=== PATIENT | male | born 1935 | race Caucasian/White ===

== ENCOUNTER 2016-05-06 09:10 | Emergency (ER) | payer MEDICARE, OTHER ==
[2016-05-06] MEDS ORDERED: DUONEB 0.5-3 MG/3 ml Neb IH ONE (09:27)
[2016-05-06] MEDS ORDERED: Sodium Chloride 0.9% 1000 ML 1,000 ML IV SCH (09:30)
[2016-05-06] MEDS ORDERED: PULMICORT 0.5 MG/2 ML RESPULES IH ONE (09:30)
[2016-05-06] MEDS ORDERED: Sodium Chloride 0.9% 1000 ML 1,000 ML ONE (09:31)
--- NOTE | 2016-05-06 09:53 | ERPHSYRPT ---
- History of Present Illness Time Seen by Provider: 05/06/16 09:50 Source: patient, family Exam Limitations: no limitations Patient Subjective Stated Complaint: increasing sob over the past few days. saw juanitoShad rodriguez this week and was started on antibiotic and prednisone. not getting any better. Triage Nursing Assessment: ambulated to room appears sob. skin w/d, color pale. breath sounds diminished throughout. breathing shallow. intermittent cough productive of gonzales sputum. Physician History: increasing sob over the past few days. saw juanitoShad rodriguez this week and was started on antibiotic and prednisone. not getting any better. severe difficulty in breathing while lying, Timing/Duration: day(s) (2-3 days) Activities at Onset: activity Severity of Dyspnea-Max: severe Severity of Dyspnea-Current: moderate Possible Cause: frequent episodes Modifying Factors: Improves With: albuterol inhaler, albuterol nebulizer Associated Symptoms: wheezing Allergies/Adverse Reactions: No Known Drug Allergies Allergy (Unverified 05/06/16 09:32) Home Medications: Amlodipine Besylate 10 mg [Norvasc 10 MG] 10 mg PO HS 05/06/16 [History] Atorvastatin Calcium [Lipitor] 10 mg PO HS 05/06/16 [History] Ciprofloxacin HCl 500 mg [Cipro 500 MG] 500 mg PO BID 05/06/16 [History] Finasteride 5 mg [Proscar 5 MG] 5 mg PO HS 05/06/16 [History] Prednisone 10 mg [Deltasone 10 mg] 10 mg PO HS 05/06/16 [History] Terazosin HCl 5 mg [Hytrin 5Mg] 5 mg PO HS 05/06/16 [History] Hx Tetanus, Diphtheria Vaccination/Date Given: No Hx Influenza Vaccination/Date Given: No Hx Pneumococcal Vaccination/Date Given: No - Review of Systems Constitutional: No Fever, No Chills Eyes: No Symptoms Ears, Nose, & Throat: No Symptoms Respiratory: Cough, Dyspnea, Dyspnea on Exertion (JACK), Wheezing Cardiac: No Chest Pain, No Edema, No Syncope Abdominal/Gastrointestinal: No Abdominal Pain, No Nausea, No Vomiting, No Diarrhea Genitourinary Symptoms: No Dysuria Musculoskeletal: No Back Pain, No Neck Pain Skin: No Rash Neurological: No Dizziness, No Focal Weakness, No Sensory Changes Psychological: No Symptoms Endocrine: No Symptoms All Other Systems: Reviewed and Negative - Past Medical History Pertinent Past Medical History: Yes Cardiac History: Aneurysm, High Cholesterol, Hypertension, Myocardial Infarction (CT) Respiratory History: COPD GI Medical History: GERD Male Reproductive Disorders: Prostate Problems 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, 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 - Past Surgical History Past Surgical History: Yes Cardiac: Cardiac Stent, Vascular Surgery Other Surgical History: repaired aaa - Social History Smoking Status: Current every day smoker How long have you smoked: 65 Exposure to second hand smoke: No Drug Use: none Patient Lives Alone: No - Nursing Vital Signs Nursing Vital Signs: Initial Vital Signs Temperature 98.7 F Temperature Source Oral Pulse Rate 91 Respiratory Rate 26 Blood Pressure [] 160/79 Pain Intensity 0 - Physical Exam General Appearance: no apparent distress, alert Eye Exam: PERRL/EOMI Neck Exam: normal inspection, supple Respiratory Exam: diminished breath sounds, crackles/rales, rhonchi, wheezing Cardiovascular/Chest Exam: normal heart sounds, regular rate/rhythm Abdominal/Gastrointestinal Exam: soft, No tenderness, No distention, No mass Extremity Exam: non-tender, normal range of motion, normal inspection, no calf tenderness, no pedal edema Neurologic Exam: alert, oriented x 3, cooperative, steamer gum candy II-XII nml as tested, sensation nml, No motor deficits Skin Exam: normal color, warm, No dry SpO2 Interpretation: normal SpO2: 98 Oxygen Delivery: Nasal Cannula - Course Nursing assessment & vital signs reviewed: Yes - Radiology Exams Chest X-ray Interpretation: Reviewed by me (COPD changes, no acute infiltrate) Ordered Tests: Active Orders 24 hr Category Date Time Status Applied Exercise Physiologist STAT Care 05/06/16 09:27 Active EKG-ER Only STAT Care 05/06/16 09:27 Active Oxygen-ED Only NASAL CANNULA 2 lpm Care 05/06/16 09:27 Active CHEST 2 VIEWS (PA AND LAT) Stat Exams 05/06/16 09:27 Taken CBC W DIFF Stat Lab 05/06/16 09:25 Completed CMP Stat Lab 05/06/16 09:25 Completed Manual Differential NC Stat Lab 05/06/16 09:25 Completed NT PRO BNP Stat Lab 05/06/16 09:25 Completed TROPONIN Stat Lab 05/06/16 09:25 Completed Respiratory Nebulizer STAT RT 05/06/16 09:29 Completed Medication Summary Generic Name Dose Route Start Last Admin Trade Name Laura PRN Reason Stop Dose Admin Sodium Chloride 1,000 mls @ 100 mls/hr 05/06/16 09:30 05/06/16 09:37 Sodium Chloride 0.9% 1000 Ml IV 06/05/16 09:29 100 mls/hr .Q10H REGAN Administration Discontinued Medications Generic Name Dose Route Start Last Admin Trade Name Laura PRN Reason Stop Dose Admin Albuterol/Ipratropium 3 ml 05/06/16 09:27 05/06/16 09:41 Duoneb 0.5-3 Mg/3 Ml Neb IH 05/06/16 09:28 3 ml STAT ONE Administration Budesonide 0.5 mg 05/06/16 09:30 05/06/16 09:41 Pulmicort 0.5 Mg/2 Ml Respules IH 05/06/16 09:31 0.5 mg STAT ONE Administration Sodium Chloride Confirm 05/06/16 09:31 Sodium Chloride 0.9% 1000 Ml Administered 05/06/16 09:32 Dose 1,000 mls @ ud .ROUTE .[facility] Lab/Rad Data: Laboratory Result Diagrams 05/06/16 09:25 05/06/16 09:25 Laboratory Results 05/06/16 05/06/16 Range/Units 09:25 09:25 WBC 8.2 (4.0-10.5) K/mm3 RBC 4.40 (4.1-5.6) M/mm3 Hgb 13.0 (12.5-18.0) gm/dl Hct 40.8 L (42-50) % MCV 92.7 (78-100) fl MCH 29.5 (26-32) pg MCHC 31.9 L (32-36) g/dl RDW 13.3 (11.5-14.0) % Plt Count 148 L (150-450) K/mm3 MPV 9.7 H (6-9.5) fl Segmented Neutrophils 85 H (36.-66.) % Lymphocytes (Manual) 9 L (24-44) % Monocytes (Manual) 5 (0.0-12.0) % Eosinophils (Manual) 1 (0.00-3.0) % Differential Comment NORMAL Platelet Estimate NORMAL (NORMAL) Sodium 139 (136-145) mEq/L Potassium 4.0 (3.5-5.1) mEq/L Chloride 103 (98-107) mEq/L Carbon Dioxide 26.3 (21-32) mEq/L Anion Gap 13.7 (5-15) MEQ/L BUN 23 H (9-20) mg/dL Creatinine 1.30 (0.55-1.30) mg/dl Estimated GFR 57 ML/MIN Glucose 105 (70-110) MG/DL Calcium 8.3 L (8.5-10.1) mg/dL Total Bilirubin 0.4 (0.2-1.0) mg/dL AST 30 (15-37) U/L ALT 19 (12-78) U/L Alkaline Phosphatase 62 (46-116) U/L Troponin I 0.029 (0.000-0.056) ng/ml NT-Pro-B Natriuret Pep 136 (0-450) pg/ml Serum Total Protein 7.0 (6.4-8.2) gm/dL Albumin 3.6 (3.4-5.0) g/dL - Progress Progress: improved, re-examined (breathing better, lots of sputum he is spitting out.) Air Movement: fair Blood Culture(s) Obtained: No Antibiotics given: No Counseled pt/family regarding: lab results, diagnosis, need for follow-up, rad results - Departure Time of Disposition: 10:31 Departure Disposition: Home Clinical Impression: Acute exacerbation of chronic obstructive bronchitis Condition: Good Critical Care Time: Yes Critical Care Time(excluding separately billable procedures): 30-74 minutes Referrals: ALLI LEOS MD [Primary Care Provider] - Instructions: Chronic Obstructive Pulmonary Disease Additional Instructions: Please follow the instructions given to you. Please take your medication as prescribed if given. If symptoms recur or get worse, come back to the emergency room if you cannot reach your primary care physician, or call your primary care physician for an appointment. Again if your symptoms get worse, come back to the emergency room. Thanks for visiting emergency room, and let us take care of you. Prescriptions: Albuterol/Ipratropium 3ml Neb* [DUONEB 0.5-3 MG/3 ml Neb] 3 ml IH QID #30 ampul.neb Budesonide [Pulmicort Nebule] 0.5 mg IH BIDRT #0 ampul.neb
[2016-05-06 09:54] LABS: Mean Cell Volume 92.7 fl (78-100); Mean Corpuscular Hemoglobin 29.5 pg (26-32); Mean Platelet Volume 9.7 fl (6-9.5); Platelet Count 148 K/mm3 (150-450); Red Cell Distribution Width 13.3 % (11.5-14.0); White Blood Count 8.2 K/mm3 (4.0-10.5)
[2016-05-06 10:10] LABS: ALBUMIN 3.6 g/dL (3.4-5.0); ANION GAP 13.7 MEQ/L (5-15); BILIRUBIN,TOTAL 0.4 mg/dL (0.2-1.0); Carbon Dioxide 26.3 mEq/L (21-32); TROPONIN 0.029 ng/ml (0.000-0.056)
[2016-05-06 10:15] LABS: Eosinophil 1 % (0.00-3.0); Total Cells Counted 100
[2016-05-06 10:16] LABS: Platelet Estimate NORMAL (NORMAL)
[2016-05-06 11:00] VITALS: BP 152/88; PULSE 90; O2SAT 95
--- NOTE | 2016-05-06 20:00 | XRAY ---
Indication: Short of breath. Comparison: None PA/lateral chest hyperinflated and clear. Heart and mediastinal structures within normal limits. Bony thorax intact with mild osteopenia and degenerative changes. Impression: Nonacute hyperinflated chest.
== END 2016-05-06 10:59 | disposition home or self-care (01) ==
LOC: ED 09:10
DX: J44.1 Chronic obstructive pulmonary disease with (acute) exacerbation (principal); R06.2 Wheezing; E78.00 Pure hypercholesterolemia, unspecified; I10 Essential (primary) hypertension; I25.2 Old myocardial infarction; Z79.899 Other long term (current) drug therapy
CPT/HCPCS: 36000; 36415; 71020; 80053; 83880; 84484; 85025; 93005; 93041; 94640; 96360; 99283; 99284

== ENCOUNTER 2019-01-11 10:02 | Emergency (ER) | payer OTHER, MEDICARE ==
[2019-01-11 10:13] VITALS: BP 143/82; PULSE 90
[2019-01-11] MEDS ORDERED: EMLA Cream 5 GM TP ONE ×2 (10:19→11:03)
--- NOTE | 2019-01-11 10:47 | ERPHSYRPT ---
- History of Present Illness Time Seen by Provider: 01/11/19 10:42 Source: patient Exam Limitations: no limitations Patient Subjective Stated Complaint: pt here for cyst to back of neck for a whole now has seen family practice, and is to see dr rose on Triage Nursing Assessment: pt walked in , resp easy, skin w/d/p, movea all ext well, pt has abscess to back of neck, no drainage Physician History: pt here for cyst to back of neck for a whole now has seen family practice, and is to see Dr rose on Timing/Duration: week(s) Possible Causes: no cause identified Allergies/Adverse Reactions: No Known Drug Allergies Allergy (Verified 01/11/19 10:04) Home Medications: Amlodipine Besylate 10 mg [Norvasc 10 MG] 10 mg PO HS 05/06/16 [History] Atorvastatin Calcium [Lipitor] 10 mg PO HS 05/06/16 [History] Ciprofloxacin [Cipro 500 MG] 500 mg PO BID 05/06/16 [History] Finasteride 5 mg [Proscar 5 MG] 5 mg PO HS 05/06/16 [History] Terazosin HCl 5 mg [Hytrin 5Mg] 5 mg PO HS 05/06/16 [History] Cephalexin Mh 500 mg [Keflex 500 mg] 500 mg QID 01/11/19 [History] Hx Tetanus, Diphtheria Vaccination/Date Given: No Hx Influenza Vaccination/Date Given: No Hx Pneumococcal Vaccination/Date Given: No - Review of Systems Constitutional: No Fever, No Chills Eyes: No Symptoms Ears, Nose, & Throat: No Symptoms Respiratory: No Cough, No Dyspnea Cardiac: No Chest Pain, No Edema, No Syncope Abdominal/Gastrointestinal: No Abdominal Pain, No Nausea, No Vomiting, No Diarrhea Genitourinary Symptoms: No Dysuria Musculoskeletal: No Back Pain, No Neck Pain Skin: Cellulitis, Induration (back of neck), No Rash Neurological: No Dizziness, No Focal Weakness, No Sensory Changes Psychological: No Symptoms Endocrine: No Symptoms All Other Systems: Reviewed and Negative - Past Medical History Pertinent Past Medical History: Yes Cardiac History: Aneurysm, High Cholesterol, Hypertension, Myocardial Infarction ([place]) Respiratory History: COPD GI Medical History: GERD Male Reproductive Disorders: Prostate Problems 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, 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 - Past Surgical History Past Surgical History: Yes Cardiac: Cardiac Stent, Vascular Surgery Other Surgical History: repaired aaa - Social History Smoking Status: Current every day smoker How long have you smoked: 65 Exposure to second hand smoke: No Drug Use: none Patient Lives Alone: No - Nursing Vital Signs Nursing Vital Signs: Initial Vital Signs Temperature 97.0 F 01/11/19 10:05 Pulse Rate 90 01/11/19 10:05 Respiratory Rate 16 01/11/19 10:05 Blood Pressure 143/82 01/11/19 10:05 O2 Sat by Pulse Oximetry 99 01/11/19 10:05 Pain Scale Pain Intensity 0 - Physical Exam General Appearance: no apparent distress, alert Eye Exam: PERRL/EOMI, eyes nml inspection Ears, Nose, Throat Exam: normal ENT inspection, pharynx normal, moist mucous membranes Neck Exam: normal inspection, non-tender, supple, full range of motion Respiratory Exam: normal breath sounds, lungs clear, No respiratory distress Cardiovascular Exam: regular rate/rhythm, normal heart sounds Gastrointestinal/Abdomen Exam: soft, mass, No tenderness Back Exam: normal inspection, normal range of motion, No CVA tenderness, No vertebral tenderness Extremity Exam: normal inspection, normal range of motion Neurologic Exam: alert, oriented x 3, cooperative, normal mood/affect, sensation nml, No motor deficits Skin Exam: normal color, warm, dry, other (abscess on back of neck) SpO2: 99 Procedures - Incision and Drainage Timeout: Performed Anesthesia: 1% Lidocaine cc's of anesthesia: 5 Blade Size: 10 I & D Procedure: betadine prep, hibiclens prep, sterile dressing applied, culture obtained, gauze wick placed Results: moderate amount pus - Course Nursing assessment & vital signs reviewed: Yes Ordered Tests: Medication Summary Discontinued Medications Generic Name Dose Route Start Last Admin Trade Name Freq PRN Reason Stop Dose Admin Lidocaine/Prilocaine Confirm 01/11/19 10:19 Emla Cream 5 Gm Administered 01/11/19 10:20 Dose 5 gm TP .[facility] - Progress Progress: improved Counseled pt/family regarding: diagnosis, need for follow-up (2 days) - Departure Departure Disposition: Home Clinical Impression: Infected sebaceous cyst Condition: Stable Critical Care Time: No Referrals: ALLI LEOS MD [Primary Care Provider] - Follow Up with PCP/3 days Instructions: Abscess Incision and Drainage, Abscess Incision and Drainage (DC) , Epidermal Cyst, Epidermal Cyst (DC) Additional Instructions: Discharge/Care Plan MOISES HERRERA was seen on 01/11/19 in the Emergency Room. The patient was counseled regarding Diagnosis,Lab results, Imaging studies, need for follow up and when to return to the Emergency Room. Prescriptions given: Discharge Note I have spoken with the patient and/or caregivers. I have explained the patient' s condition, diagnosis and treatment plan based on the information available to me at this time. I have answered the patient's and/or caregiver's questions and addressed any concerns. The patient and/or caregivers have as good understanding of the patient's diagnosis, condition and treatment plan as can be expected at this point. The vital signs have been stable. The patient's condition is stable and appropriate for discharge from the emergency department. The patient will pursue further outpatient evaluation with the primary care physician or other designated or consulting physician as outlined in the discharge instructions. The patient and/or caregivers are agreeable to this plan of care and follow-up instructions have been explained in detail. The patient and/or caregivers have received these instruction. The patient/and or caregivers are aware that any significant change in condition or worsening of symptoms should prompt an immediate return to this or the closest emergency department or call 911. Prescriptions: Cephalexin Mh 500 mg [Keflex 500 mg] 500 mg PO Q6H #40 capsule
[2019-01-11 11:03] VITALS: O2SAT 97
[2019-01-11] MEDS ORDERED: XYLOCAINE 1% HCL 20 ML MDV IJ ONE (11:04)
== END 2019-01-11 11:06 | disposition home or self-care (01) ==
LOC: ED 10:02
DX: L72.3 Sebaceous cyst (principal); I10 Essential (primary) hypertension; J44.9 Chronic obstructive pulmonary disease, unspecified; E78.00 Pure hypercholesterolemia, unspecified; K21.9 Gastro-esophageal reflux disease without esophagitis; Z79.899 Other long term (current) drug therapy; I25.2 Old myocardial infarction
CPT/HCPCS: 87070; 99283; A9270-GY

== ENCOUNTER 2022-07-18 17:26 | Emergency (ER) | payer MEDICARE ==
[2022-07-18] MEDS ORDERED: CARDIZEM DRIP 100 MG/100 ML D5W 100 ML IV ONE (17:31)
[2022-07-18] MEDS ORDERED: Cardizem IV 50 MG/10 ML IV ONE (17:32)
[2022-07-18] MEDS ORDERED: Sodium Chloride 0.9% 1000 ML 1,000 ML ONE (17:33)
[2022-07-18] MEDS ORDERED: CARDIZEM DRIP 100 MG/100 ML D5W 100 ML IV PRN (17:36)
--- NOTE | 2022-07-18 17:38 | ERPHSYRPT ---
- History of Present Illness Time Seen by Provider: 07/18/22 17:45 Historian: patient Exam Limitations: no limitations Physician History: Patient is an 87-year-old male presents to our ED with complaints of dizziness chest pressure and left hand numbness. Patient states he was doing yard work when symptoms occurred. Upon arrival to our ED patient was observed to have a heart rate in the 180s. EKG reveals atrial fibrillation with rapid ventricular response. Patient denies a history of A-fib or SVT. No associated nausea vomiting or diaphoresis. Symptoms are now improving. Symptoms would present more moderate in intensity. No specific worsening improving factors. Patient states he feels well otherwise. at bedside. voices no other complaints or concerns at this time. Portions of this note were created with voice recognition technology. There may be grammatical, spelling, punctuation or sound alike errors Timing/Duration: today Activities at Onset: none Quality: pressure Location: substernal Chest Pain Radiation: arm Severity of Pain-Max: moderate (Symptoms radiate to left hand) Severity of Pain-Current: mild Modifying Factors: Improves With: nothing Associated Symptoms: dizziness Prior Chest Pain/Cardiac Workup: no prior chest pain Nitro Today/Relief: no nitro taken today Aspirin Treatment Today: no aspirin today Allergies/Adverse Reactions: No Known Drug Allergies Allergy (Verified 01/11/19 10:04) Home Medications: Amlodipine Besylate 10 mg [Norvasc 10 MG] 10 mg PO HS 05/06/16 [History] Atorvastatin Calcium [Lipitor] 10 mg PO HS 05/06/16 [History] Finasteride 5 mg [Proscar 5 MG] 5 mg PO HS 05/06/16 [History] Terazosin HCl 5 mg [Hytrin 5Mg] 5 mg PO HS 05/06/16 [History] Potassium Chloride [Klor-Con 10] 10 meq PO HS 07/18/22 [History] Hx Tetanus, Diphtheria Vaccination/Date Given: No Hx Influenza Vaccination/Date Given: No Hx Pneumococcal Vaccination/Date Given: No - Review of Systems Constitutional: No Symptoms, No Fever, No Chills Eyes: No Symptoms Ears, Nose, & Throat: No Symptoms Respiratory: No Symptoms, No Cough, No Dyspnea Cardiac: No Symptoms, No Chest Pain, No Edema, No Syncope Abdominal/Gastrointestinal: No Symptoms, No Abdominal Pain, No Nausea, No Vomiting, No Diarrhea Genitourinary Symptoms: No Symptoms, No Dysuria Musculoskeletal: No Symptoms, No Back Pain, No Neck Pain Skin: No Symptoms, No Rash Neurological: No Symptoms, No Dizziness, No Focal Weakness, No Sensory Changes Psychological: No Symptoms Endocrine: No Symptoms Hematologic/Lymphatic: No Symptoms Immunological/Allergic: No Symptoms All Other Systems: Reviewed and Negative - Past Medical History Pertinent Past Medical History: Yes Cardiac History: Aneurysm, High Cholesterol, Hypertension, Myocardial Infarction (VT) Respiratory History: COPD GI Medical History: GERD Male Reproductive Disorders: Prostate Problems 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, 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 - Past Surgical History Past Surgical History: Yes Cardiac: Cardiac Stent, Vascular Surgery Other Surgical History: repaired aaa - Social History Smoking Status: Current every day smoker How long have you smoked: 65 Exposure to second hand smoke: No Drug Use: none Patient Lives Alone: No - Nursing Vital Signs Nursing Vital Signs: Initial Vital Signs Pulse Rate 138 H 07/18/22 17:58 Respiratory Rate 7 L 07/18/22 17:58 Blood Pressure 100/66 07/18/22 17:58 O2 Sat by Pulse Oximetry 98 07/18/22 17:58 Pain Scale Pain Intensity 0 - Physical Exam General Appearance: no apparent distress, alert Eye Exam: PERRL/EOMI, eyes nml inspection Ears, Nose, Throat Exam: normal ENT inspection, TMs normal, pharynx normal, moist mucous membranes Neck Exam: normal inspection, non-tender, supple, full range of motion Respiratory Exam: normal breath sounds, lungs clear, airway intact, No respiratory distress Cardiovascular Exam: regular rate/rhythm, normal heart sounds, normal peripheral pulses Gastrointestinal/Abdomen Exam: soft, No tenderness, No mass Back Exam: normal inspection, normal range of motion, No CVA tenderness, No vertebral tenderness Extremity Exam: normal inspection, normal range of motion Neurologic Exam: alert, oriented x 3, cooperative, normal mood/affect, sensation nml, No motor deficits Skin Exam: normal color, warm, dry Lymphatic Exam: No adenopathy SpO2 Interpretation: normal SpO2: 98 O2 Delivery: Room Air - Course Nursing assessment & vital signs reviewed: Yes - Radiology Exams Chest X-ray Interpretation: Interpreted by me (COPD changes left base calcified granuloma blunting of right costophrenic angle osteopenia normal cardiac silhouette) Ordered Tests: Active Orders 24 hr Category Date Time Status Production Cost Estimator STAT Care 07/18/22 17:34 Active EKG-ER Only STAT Care 07/18/22 17:33 Active IV Insertion STAT Care 07/18/22 17:33 Active Pulse Oximetry (ED) STAT Care 07/18/22 17:33 Active CHEST 1 VIEW (PORTABLE) Stat Exams 07/18/22 17:34 Taken CBC Q48H Lab 07/19/22 06:00 Ordered CBC Q48H Lab 07/21/22 06:00 Ordered CBC Q48H Lab 07/23/22 06:00 Ordered CBC Q48H Lab 07/25/22 06:00 Ordered CBC Q48H Lab 07/27/22 06:00 Ordered CBC Q48H Lab 07/29/22 06:00 Ordered CBC Q48H Lab 07/31/22 06:00 Ordered CBC Stat Lab 07/18/22 18:35 Ordered CBC W DIFF Stat Lab 07/18/22 17:35 Completed CMP Stat Lab 07/18/22 17:35 Completed MAGNESIUM Stat Lab 07/18/22 17:35 Completed NT PRO BNPII Stat Lab 07/18/22 17:35 Completed PROTIME WITH INR Stat Lab 07/18/22 17:35 Completed PROTIME WITH INR Stat Lab 07/18/22 18:35 Ordered PTT Q4H Lab 07/18/22 18:45 Ordered PTT Q4H Lab 07/18/22 22:45 Ordered PTT Q4H Lab 07/19/22 02:45 Ordered PTT Q4H Lab 07/19/22 06:45 Ordered PTT Q4H Lab 07/19/22 10:45 Ordered PTT Q4H Lab 07/19/22 14:45 Ordered PTT Q4H Lab 07/19/22 18:45 Ordered PTT Q4H Lab 07/19/22 22:45 Ordered PTT Q4H Lab 07/20/22 02:45 Ordered PTT Q4H Lab 07/20/22 06:45 Ordered PTT Q4H Lab 07/20/22 10:45 Ordered PTT Q4H Lab 07/20/22 14:45 Ordered PTT Stat Lab 07/18/22 17:35 Completed PTT Stat Lab 07/18/22 18:35 Ordered TROPONIN Q4H Lab 07/18/22 17:35 Completed TROPONIN Q4H Lab 07/18/22 21:45 Ordered TROPONIN Q4H Lab 07/19/22 01:45 Ordered Urine Triage Profile Stat Lab 07/18/22 17:33 Ordered Medication Summary Generic Name Dose Route Start Last Admin Trade Name Freraymundo PRN Reason Stop Dose Admin Diltiazem HCl 100 mls @ 5 mls/hr 07/18/22 17:36 Cardizem Drip 100 Mg/100 Ml D5w IV 08/17/22 17:35 .Q20H PRN HEART RATE/ A-FIB Protocol 5 MG/HR Heparin Sodium/Dextrose 25,000 units in 250 mls @ 8.328 mls/hr 07/18/22 19:00 Heparin 25,000 Units/D5w: Use Order Set Salvatore IV 08/17/22 18:59 .Q24H REGAN Protocol 12 UNITS/KG/HR Discontinued Medications Generic Name Dose Route Start Last Admin Trade Name Freraymundo PRN Reason Stop Dose Admin Aspirin 324 mg 07/18/22 18:45 Aspirin 81 Mg Tab.Chew PO 07/18/22 18:46 STAT ONE Diltiazem HCl Confirm 07/18/22 17:32 Diltiazem Hcl Iv 5 Mg/Ml Vial Administered 07/18/22 17:33 Dose 50 mg IV .STK-MED ONE Heparin Sodium (Beef Lung) 4,200 unit 07/18/22 18:35 Heparin 5000 Units/0.5 Ml 5,000 Unit/0.5 Ml Syr 60 unit/kg (4200 unit) 07/18/22 18:36 IV STAT STA Diltiazem HCl Confirm 07/18/22 17:31 Cardizem Drip 100 Mg/100 Ml D5w Administered 07/18/22 17:32 Dose 100 mls @ ud IV .STK-MED ONE Sodium Chloride Confirm 07/18/22 17:33 Sodium Chloride 0.9% 1000 Ml Administered 07/18/22 17:34 Dose 1,000 mls @ ud .ROUTE .STK-MED ONE Lab/Rad Data: Laboratory Result Diagrams 07/18/22 17:35 07/18/22 17:35 Laboratory Results 07/18/22 07/18/22 07/18/22 Range/Units 17:35 17:35 17:35 WBC (4.0-10.5) x10^3/uL RBC (4.1-5.6) x10^6/uL Hgb (12.5-18.0) g/dL Hct (42-50) % MCV (78-100) fL MCH (26-32) pg MCHC (32-36) g/dL RDW (11.5-14.0) % Plt Count (150-450) x10^3/uL MPV (7.5-11.0) fL Gran % (36.0-66.0) % Immature Gran % (Auto) (0.00-0.4) % Nucleat RBC Rel Count (0.00-0.1) % Eos # (Auto) (0-0.5) x10^3/uL Immature Gran # (Auto) (0.00-0.03) x10^3u/L Absolute Lymphs (auto) (1.0-4.6) x10^3/uL Absolute Monos (auto) (0.0-1.3) x10^3/uL Absolute Nucleated RBC (0.00-0.01) x10^3u/L Lymphocytes % (24.0-44.0) % Monocytes % (0.0-12.0) % Eosinophils % (0.00-5.0) % Basophils % (0.0-0.4) % Absolute Granulocytes (1.4-6.9) x10^3/uL Basophils # (0-0.4) x10^3/uL PT 11.9 (9.4-12.5) SECONDS INR 1.10 (0.8-3.0) APTT 29.2 (25.1-36.5) SECONDS Sodium 138 (137-145) mmol/L Potassium 4.4 (3.5-5.1) mmol/L Chloride 102 (98-107) mmol/L Carbon Dioxide 27 (22-30) mmol/L Anion Gap 12.6 (5-15) MEQ/L BUN 23 H (9-20) mg/dL Creatinine 1.41 H (0.66-1.25) mg/dL Estimated GFR 50.7 ML/MIN Glucose 127 H (74-106) mg/dL Calcium 8.4 (8.4-10.2) mg/dL Magnesium 1.9 (1.6-2.3) mg/dL Total Bilirubin 0.40 (0.2-1.3) mg/dL AST 21 (17-59) U/L ALT 14 (0-50) U/L Alkaline Phosphatase 61 (38-126) U/L Troponin I 0.083 H* (0.000-0.034) ng/mL NT-Pro-B Natriuret Pep 1610 (<300) pg/mL Serum Total Protein 6.5 (6.3-8.2) g/dL Albumin 3.3 L (3.5-5.0) g/dL 07/18/22 Range/Units 17:35 WBC 9.6 (4.0-10.5) x10^3/uL RBC 4.28 (4.1-5.6) x10^6/uL Hgb 11.5 L (12.5-18.0) g/dL Hct 37.6 L (42-50) % MCV 87.9 (78-100) fL MCH 26.9 (26-32) pg MCHC 30.6 L (32-36) g/dL RDW 13.9 (11.5-14.0) % Plt Count 235 (150-450) x10^3/uL MPV 9.2 (7.5-11.0) fL Gran % 74.8 H (36.0-66.0) % Immature Gran % (Auto) 0.3 (0.00-0.4) % Nucleat RBC Rel Count 0.0 (0.00-0.1) % Eos # (Auto) 0.08 (0-0.5) x10^3/uL Immature Gran # (Auto) 0.03 (0.00-0.03) x10^3u/L Absolute Lymphs (auto) 1.41 (1.0-4.6) x10^3/uL Absolute Monos (auto) 0.85 (0.0-1.3) x10^3/uL Absolute Nucleated RBC 0.00 (0.00-0.01) x10^3u/L Lymphocytes % 14.7 L (24.0-44.0) % Monocytes % 8.9 (0.0-12.0) % Eosinophils % 0.8 (0.00-5.0) % Basophils % 0.5 (0.0-0.4) % Absolute Granulocytes 7.17 H (1.4-6.9) x10^3/uL Basophils # 0.05 (0-0.4) x10^3/uL PT (9.4-12.5) SECONDS INR (0.8-3.0) APTT (25.1-36.5) SECONDS Sodium (137-145) mmol/L Potassium (3.5-5.1) mmol/L Chloride (98-107) mmol/L Carbon Dioxide (22-30) mmol/L Anion Gap (5-15) MEQ/L BUN (9-20) mg/dL Creatinine (0.66-1.25) mg/dL Estimated GFR ML/MIN Glucose (74-106) mg/dL Calcium (8.4-10.2) mg/dL Magnesium (1.6-2.3) mg/dL Total Bilirubin (0.2-1.3) mg/dL AST (17-59) U/L ALT (0-50) U/L Alkaline Phosphatase (38-126) U/L Troponin I (0.000-0.034) ng/mL NT-Pro-B Natriuret Pep (<300) pg/mL Serum Total Protein (6.3-8.2) g/dL Albumin (3.5-5.0) g/dL - Progress Progress: improved Air Movement: good Progress Note: Case discussed with Dr. Salmon. Dr. Salmon advises transfer in light of patient's ongoing tachycardia and elevated troponin. Patient does not have a history of atrial fibrillation. He will require cardiology consultation and further monitoring. Work-up reveals dehydration. IV fluids infusing. Patient states he feels better. No active chest pain at this time. Heparin drip initiated 07/18/22 18:[address] Gallardo ER physician at [facility] who accepts tr ansfer. Plan of care discussed with patient. Patient agrees to transfer to [facility] for further evaluation and treatment. Portions of this note were created with voice recognition technology. There may be grammatical, spelling, punctuation or sound alike errors 07/18/22 18:47 Patient is a 87-year-old male presents to our ED for evaluation of acute onset chest pressure dizziness and generalized weakness. Physical examination essentially nonremarkable. EKG reveals A-fib with RVR. Work-up entails CBC CMP. CMP reveals dehydration with an elevated creatinine of 1.4. COVID-negativ e. Magnesium normal. Troponin elevated at 0.08. Patient received Cardizem bolus and drip. Heart rate initially in the 180s. Heart rate improved down to the 130s. Patient was also receiving IV fluids. Heparin drip initiated. Aspirin administered. Vital stable. Patient has no chest pain at this time. Patient's presentation was acute in nature. Complexity of problem addressed is high. Acute problem with systemic manifestation. Patient's presentation was life- threatening and required critical intervention. Critical care time approximately 2 hours. Work-up reveals elevated troponin. Heart rate tachycardic into the 180s. Immediate action required to prevent further deterioration. Complexity of data reviewed and analyzed is extensive. Test ordered. Test reviewed. Chest x-ray independently reviewed by Dr. Mejia. EKG independently reviewed by Dr. Mejia. Plan of care/patient management discussed with outside physician. Patient accepted to [facility] by Dr. Gallardo. Patient management also discussed with Dr. Salmon. Risk of complication and or risk morbidity/mortality is high. Patient received Cardizem, heparin drip. Patient will require hospitalization for further evaluation and treatment. Patient will be transferred to [facility]. Plan of care established based on shared decision making. Patient voiced no other complaints concerns at this time. Portions of this note were created with voice recognition technology. There may be grammatical, spelling, punctuation or sound alike errors 07/18/22 18:54 07/18/22 18:58 Blood Culture(s) Obtained: No Antibiotics given: No Discussed with : Ely Will see patient in: office Counseled pt/family regarding: lab results, diagnosis, rad results - Departure Departure Disposition: Transfer Clinical Impression: Atrial fibrillation with RVR, Dehydration, Elevated troponin, Dizziness Condition: Stable Critical Care Time: No Referrals: ALLI SALMON MD [Primary Care Provider] - Follow up/PCP as directed
[2022-07-18 17:44] LABS: Absolute Neutrophil Ct (ANC) 7.17 x10^3/uL (1.4-6.9); BASOPHIL % 0.5 % (0.0-0.4); Basophil (Absolute #) 0.05 x10^3/uL (0-0.4); Eosinophil % 0.8 % (0.00-5.0); Eosinophil (Absolute #) 0.08 x10^3/uL (0-0.5); Hematocrit 37.6 % (42-50); Hemoglobin 11.5 g/dL (12.5-18.0); IMMATURE GRAN # 0.03 x10^3u/L (0.00-0.03); IMMATURE GRAN % 0.3 % (0.00-0.4); Lymphocyte (Absolute #) 1.41 x10^3/uL (1.0-4.6); Lymphocytes % 14.7 % (24.0-44.0); Mean Cell Volume 87.9 fL (78-100); Mean Corpuscular Hemoglobin 26.9 pg (26-32); Mean Corpuscular Hgb Concent. 30.6 g/dL (32-36); Mean Platelet Volume 9.2 fL (7.5-11.0); Monocyte (Absolute #) 0.85 x10^3/uL (0.0-1.3); Monocytes % 8.9 % (0.0-12.0); Neutrophil % 74.8 % (36.0-66.0); Platelet Count 235 x10^3/uL (150-450); Red Blood Count 4.28 x10^6/uL (4.1-5.6); Red Cell Distribution Width 13.9 % (11.5-14.0); White Blood Count 9.6 x10^3/uL (4.0-10.5)
[2022-07-18 17:58] LABS: INR 1.1 (0.8-3.0); PROTIME 11.9 SECONDS (9.4-12.5); PTT 29.2 SECONDS (25.1-36.5)
[2022-07-18 18:04] LABS: ALBUMIN 3.3 g/dL (3.5-5.0); ANION GAP 12.6 MEQ/L (5-15); BILIRUBIN,TOTAL 0.4 mg/dL (0.2-1.3); Calcium 8.4 mg/dL (8.4-10.2); Creatinine 1 1.41 mg/dL (0.66-1.25); EST GLOMERULAR FILTRATION RATE 50.7 ML/MIN; MAGNESIUM 1.9 mg/dL (1.6-2.3); Potassium 4.4 mmol/L (3.5-5.1); Total Protein 6.5 g/dL (6.3-8.2)
[2022-07-18] MEDS ORDERED: HEPARIN 5000 UNITS/0.5 ML (HIGH RISK MED) IV STA (18:35)
[2022-07-18] MEDS ORDERED: BABY ASPIRIN 81 MG CHEW PO ONE (18:45)
[2022-07-18] MEDS ORDERED: BABY ASPIRIN 81 MG CHEW ONE (18:48)
[2022-07-18] MEDS ORDERED: HEPARIN 5000 UNITS/0.5 ML (HIGH RISK MED) ONE (18:49)
[2022-07-18] MEDS ORDERED: Heparin 25,000 units/D5W: USE ORDER SET PROTO 25,000 UNITS/250 ML BAG IV ONE (18:49)
[2022-07-18 18:57] LABS: INFLUENZA A NEGATIVE (NEGATIVE); INFLUENZA B NEGATIVE (NEGATIVE); RESPIRATORY SYNCTIAL VIRUS NEGATIVE (NEGATIVE); SARS-CoV-2 Xpert Express NEGATIVE (NEGATIVE)
[2022-07-18] MEDS ORDERED: Heparin 25,000 units/D5W: USE ORDER SET PROTO 25,000 UNITS/250 ML BAG IV SCH (19:00)
[2022-07-18] MEDS ORDERED: Sodium Chloride 0.9% 1000 ML 1,000 ML IV SCH (19:00)
[2022-07-18 19:04] VITALS: BP 114/84; PULSE 135
[2022-07-18 19:05] VITALS: O2SAT 98
[2022-07-18 20:44] LABS: Amphetamine,Urine NEGATIVE (NEGATIVE); Barbiturate,Urine NEGATIVE (NEGATIVE); Benzodiazepine,Urine NEGATIVE (NEGATIVE); Cocaine,Urine NEGATIVE (NEGATIVE); Methadone,Urine NEGATIVE (NEGATIVE); Opiate,Urine NEGATIVE (NEGATIVE); PCP,Urine NEGATIVE (NEGATIVE); THC,Urine NEGATIVE (NEGATIVE)
--- NOTE | 2022-07-19 08:39 | XRAY ---
Indication: Chest pain. Comparison: February 17, 2021 Portable chest again demonstrates new right infrahilar suture material with right base effusion/thickening. Remaining heart and left lung unremarkable again with COPD and tortuous descending aorta. Bony thorax intact again with osteopenia and degenerative changes. Limited upper abdomen again demonstrates partially visualized aortic stent.
== END 2022-07-18 19:50 | disposition short-term general hospital (02) ==
LOC: ED 17:26
DX: I48.20 Chronic atrial fibrillation, unspecified (principal); E86.0 Dehydration; R77.8 Other specified abnormalities of plasma proteins; R42 Dizziness and giddiness; R07.9 Chest pain, unspecified; R20.2 Paresthesia of skin; E78.5 Hyperlipidemia, unspecified; I25.2 Old myocardial infarction; I10 Essential (primary) hypertension; Z79.899 Other long term (current) drug therapy; Z72.0 Tobacco use; Z20.828 Contact with and (suspected) exposure to other viral communicable diseases
CPT/HCPCS: 0241U; 36415; 71045; 80053; 80307; 83735; 83880; 84484; 85025; 85610; 85730; 93005; 93041; 94760; 96374; 99285; J1644; A9270-GY

== ENCOUNTER 2022-07-20 21:17 | Inpatient (IN) | payer MEDICARE ==
--- NOTE | 2022-07-20 21:54 | ERPHSYRPT ---
- History of Present Illness Time Seen by Provider: 07/20/22 21:54 Source: patient Exam Limitations: no limitations Physician History: Patient presents w/ palpitations for the past hour. Patient was recently discharged from [facility] after being diagnosed w/ Afib. He was started on Metoprolol and Eliquis at d/c His BP was elevated VAMP PRESSER >200/>100 Patient also has significant b/l LE pitting edema Denies SOB Code status DNR/DNI/Comprehensive Timing/Duration: today Activities at Onset: rest Quality: pressure Location: central Chest Pain Radiation: no radiation Severity of Pain-Max: mild Severity of Pain-Current: mild Modifying Factors: Improves With: nothing. Worsens With: exertion Nitro Today/Relief: no nitro taken today Aspirin Treatment Today: 81 mg x 4, provided by ED Associated Symptoms: denies symptoms Prior Chest Pain/Cardiac Workup: no prior chest pain Allergies/Adverse Reactions: No Known Drug Allergies Allergy (Verified 01/11/19 10:04) Home Medications: Amlodipine Besylate 10 mg [Norvasc 10 MG] 10 mg PO HS 05/06/16 [History] Atorvastatin Calcium [Lipitor] 10 mg PO HS 05/06/16 [History] Finasteride 5 mg [Proscar 5 MG] 5 mg PO HS 05/06/16 [History] Terazosin HCl 5 mg [Hytrin 5Mg] 5 mg PO HS 05/06/16 [History] Apixaban [Eliquis] 5 mg PO BID 07/20/22 [History] Metoprolol Succinate [Toprol Xl] 12.5 mg PO DAILY 07/20/22 [History] Hx Tetanus, Diphtheria Vaccination/Date Given: No Hx Influenza Vaccination/Date Given: No Hx Pneumococcal Vaccination/Date Given: No Travel Risk - Vaccine Status Have you recieved a Covid-19 vaccination: Yes 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[employer] - Vaccination Dates Date of 2cond Vaccination (if applicable): 2020 - Review of Systems Constitutional: No Symptoms Eyes: No Symptoms Ears, Nose, & Throat: No Symptoms Respiratory: No Symptoms Cardiac: Edema, Palpitations, No Chest Pain, No Syncope, No Orthopnea, No PND Abdominal/Gastrointestinal: Constipation, No Abdominal Pain, No Nausea, No Vomiting, No Diarrhea Genitourinary Symptoms: No Symptoms Musculoskeletal: No Symptoms Skin: No Symptoms Neurological: No Symptoms Psychological: No Symptoms Endocrine: No Symptoms Hematologic/Lymphatic: No Symptoms Immunological/Allergic: No Symptoms All Other Systems: Reviewed and Negative - Past Medical History Pertinent Past Medical History: Yes Cardiac History: Aneurysm, High Cholesterol, Hypertension, Myocardial Infarction (SC) Respiratory History: COPD GI Medical History: GERD Male Reproductive Disorders: Prostate Problems 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, 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 - Past Surgical History Past Surgical History: Yes Cardiac: Cardiac Stent, Vascular Surgery Other Surgical History: repaired aaa - Social History Smoking Status: Current every day smoker How long have you smoked: 65 Exposure to second hand smoke: No Drug Use: none Patient Lives Alone: No - Nursing Vital Signs Nursing Vital Signs: Initial Vital Signs Temperature 97.5 F 07/20/22 21:18 Pulse Rate 119 H 07/20/22 21:18 Respiratory Rate 12 07/20/22 21:18 Blood Pressure 178/123 07/20/22 21:18 O2 Sat by Pulse Oximetry 99 07/20/22 21:18 Pain Scale Pain Intensity 0 - Physical Exam General Appearance: no apparent distress, thin Eye Exam: eyes nml inspection Ears, Nose, Throat Exam: normal ENT inspection Neck Exam: normal inspection Respiratory Exam: normal breath sounds, airway intact, diminished breath sounds, No respiratory distress Cardiovascular Exam: tachycardia, irregular, edema (3+) Gastrointestinal/Abdomen Exam: soft, No tenderness Extremity Exam: pedal edema, swelling, No tenderness Neurologic Exam: alert, oriented x 3, cooperative, No confusion Skin Exam: warm, dry, pale SpO2 Interpretation: normal O2 Delivery: Room Air - Course Nursing assessment & vital signs reviewed: Yes EKG Interpreted by Me: RATE (119, irregular), Sinus Tach, NORMAL AXIS, NORMAL INTERVALS, Non-specific ST Changes Ordered Tests: Active Orders 24 hr Category Date Time Status Insulation Blanket Maker STAT Care 07/20/22 22:21 Active Code Status Order ROUTINE Care 07/21/22 02:23 Active EKG-ER Only STAT Care 07/20/22 22:20 Active IV Insertion STAT Care 07/20/22 22:24 Active Pulse Oximetry (ED) STAT Care 07/20/22 22:20 Active BMP Stat Lab 07/20/22 21:40 Completed CBC Q48H Lab 07/22/22 06:00 Ordered CBC Q48H Lab 07/24/22 06:00 Ordered CBC Q48H Lab 07/26/22 06:00 Ordered CBC Q48H Lab 07/28/22 06:00 Ordered CBC Q48H Lab 07/30/22 06:00 Ordered CBC Q48H Lab 08/01/22 06:00 Ordered CBC Q48H Lab 08/03/22 06:00 Ordered CBC W DIFF Stat Lab 07/20/22 21:40 Completed MAGNESIUM Stat Lab 07/20/22 21:40 Completed NT PRO BNPII Stat Lab 07/20/22 21:40 Completed PROTIME WITH INR Stat Lab 07/21/22 02:10 Completed PTT Q4H Lab 07/21/22 06:00 Ordered PTT Q4H Lab 07/21/22 10:00 Ordered PTT Q4H Lab 07/21/22 14:00 Ordered PTT Q4H Lab 07/21/22 18:00 Ordered PTT Q4H Lab 07/21/22 22:00 Ordered PTT Q4H Lab 07/22/22 02:00 Ordered PTT Q4H Lab 07/22/22 06:00 Ordered PTT Q4H Lab 07/22/22 10:00 Ordered PTT Q4H Lab 07/22/22 14:00 Ordered PTT Q4H Lab 07/22/22 18:00 Ordered PTT Q4H Lab 07/22/22 22:00 Ordered PTT Stat Lab 07/21/22 02:10 Completed TROPONIN Q4H Lab 07/20/22 21:40 Completed TROPONIN Q4H Lab 07/21/22 00:46 Completed TROPONIN Q4H Lab 07/21/22 06:30 Ordered Transfer Order Routine Transfer 07/21/22 Ordered Medication Summary Generic Name Dose Route Start Last Admin Trade Name Freq PRN Reason Stop Dose Admin Heparin Sodium/Dextrose 25,000 units in 250 mls @ 8.472 mls/hr 07/21/22 02:00 07/21/22 02:37 Heparin 25,000 Units/D5w: Use Order Set Salvatore IV 08/20/22 01:59 12 units/kg/hr .Q24H REGAN 8.472 mls/hr Administration Protocol 12 UNITS/KG/HR Discontinued Medications Generic Name Dose Route Start Last Admin Trade Name Freq PRN Reason Stop Dose Admin Aspirin 324 mg 07/21/22 01:50 07/21/22 02:37 Aspirin 81 Mg Tab.Chew PO 07/21/22 01:51 324 mg STAT ONE Administration Aspirin Confirm 07/21/22 02:35 Aspirin 81 Mg Tab.Chew Administered 07/21/22 02:36 Dose 324 mg .ROUTE .STK-MED ONE Diltiazem HCl 15 mg 07/20/22 22:20 07/20/22 22:26 Diltiazem Hcl Iv 5 Mg/Ml Vial IV 07/20/22 22:21 15 mg STAT ONE Administration Diltiazem HCl Confirm 07/20/22 22:25 Diltiazem Hcl Iv 5 Mg/Ml Vial Administered 07/20/22 22:26 Dose 50 mg IV .STK-MED ONE Furosemide 40 mg 07/20/22 22:51 07/20/22 22:54 Furosemide 40 Mg/4 Ml Vial IV 07/20/22 22:52 Not Given STAT ONE Furosemide 40 mg 07/20/22 23:14 07/20/22 23:15 Furosemide 40 Mg/4 Ml Vial IV 07/20/22 23:15 40 mg STAT ONE Administration Furosemide Confirm 07/20/22 23:14 Furosemide 40 Mg/4 Ml Vial Administered 07/20/22 23:15 Dose 40 mg .ROUTE .STK-MED ONE Heparin Sodium (Beef Lung) 4,200 unit 07/21/22 02:34 07/21/22 02:36 Heparin 5000 Units/0.5 Ml 5,000 Unit/0.5 Ml Syr 60 unit/kg (4200 unit) 07/21/22 02:35 4,200 unit IV Administration STAT STA Heparin Sodium (Beef Lung) Confirm 07/21/22 02:35 Heparin 5000 Units/0.5 Ml 5,000 Unit/0.5 Ml Syr Administered 07/21/22 02:36 Dose 5,000 unit .ROUTE .STK-MED ONE Lab/Rad Data: Laboratory Result Diagrams 07/20/22 21:40 07/20/22 21:40 Laboratory Results 07/21/22 07/21/22 07/21/22 Range/Units 02:10 01:38 00:46 WBC (4.0-10.5) x10^3/uL RBC (4.1-5.6) x10^6/uL Hgb (12.5-18.0) g/dL Hct (42-50) % MCV (78-100) fL MCH (26-32) pg MCHC (32-36) g/dL RDW (11.5-14.0) % Plt Count (150-450) x10^3/uL MPV (7.5-11.0) fL Gran % (36.0-66.0) % Immature Gran % (Auto) (0.00-0.4) % Nucleat RBC Rel Count (0.00-0.1) % Eos # (Auto) (0-0.5) x10^3/uL Immature Gran # (Auto) (0.00-0.03) x10^3u/L Absolute Lymphs (auto) (1.0-4.6) x10^3/uL Absolute Monos (auto) (0.0-1.3) x10^3/uL Absolute Nucleated RBC (0.00-0.01) x10^3u/L Lymphocytes % (24.0-44.0) % Monocytes % (0.0-12.0) % Eosinophils % (0.00-5.0) % Basophils % (0.0-0.4) % Absolute Granulocytes (1.4-6.9) x10^3/uL Basophils # (0-0.4) x10^3/uL PT 11.9 (9.4-12.5) SECONDS INR 1.10 (0.8-3.0) APTT 30.3 (25.1-36.5) SECONDS Sodium (137-145) mmol/L Potassium (3.5-5.1) mmol/L Chloride (98-107) mmol/L Carbon Dioxide (22-30) mmol/L Anion Gap (5-15) MEQ/L BUN (9-20) mg/dL Creatinine (0.66-1.25) mg/dL Estimated GFR ML/MIN Glucose (74-106) mg/dL Calcium (8.4-10.2) mg/dL Magnesium (1.6-2.3) mg/dL Troponin I 0.278 H* (0.000-0.034) ng/mL NT-Pro-B Natriuret Pep (<300) pg/mL Influenza Type A Ag NEGATIVE (NEGATIVE) Influenza Type B Ag NEGATIVE (NEGATIVE) RSV (PCR) NEGATIVE (NEGATIVE) SARS-CoV-2 (PCR) NEGATIVE (NEGATIVE) 07/20/22 07/20/2207/20/23 Range/Units 21:40 21:40 21:40 WBC (4.0-10.5) x10^3/uL RBC (4.1-5.6) x10^6/uL Hgb (12.5-18.0) g/dL Hct (42-50) % MCV (78-100) fL MCH (26-32) pg MCHC (32-36) g/dL RDW (11.5-14.0) % Plt Count (150-450) x10^3/uL MPV (7.5-11.0) fL Gran % (36.0-66.0) % Immature Gran % (Auto) (0.00-0.4) % Nucleat RBC Rel Count (0.00-0.1) % Eos # (Auto) (0-0.5) x10^3/uL Immature Gran # (Auto) (0.00-0.03) x10^3u/L Absolute Lymphs (auto) (1.0-4.6) x10^3/uL Absolute Monos (auto) (0.0-1.3) x10^3/uL Absolute Nucleated RBC (0.00-0.01) x10^3u/L Lymphocytes % (24.0-44.0) % Monocytes % (0.0-12.0) % Eosinophils % (0.00-5.0) % Basophils % (0.0-0.4) % Absolute Granulocytes (1.4-6.9) x10^3/uL Basophils # (0-0.4) x10^3/uL PT (9.4-12.5) SECONDS INR (0.8-3.0) APTT (25.1-36.5) SECONDS Sodium 139 (137-145) mmol/L Potassium 4.1 (3.5-5.1) mmol/L Chloride 102 (98-107) mmol/L Carbon Dioxide 30 (22-30) mmol/L Anion Gap 10.6 (5-15) MEQ/L BUN 18 (9-20) mg/dL Creatinine 1.10 (0.66-1.25) mg/dL Estimated GFR > 60.0 ML/MIN Glucose 113 H (74-106) mg/dL Calcium 8.3 L (8.4-10.2) mg/dL Magnesium 2.1 (1.6-2.3) mg/dL Troponin I 0.257 H* (0.000-0.034) ng/mL NT-Pro-B Natriuret Pep 1940 (<300) pg/mL Influenza Type A Ag (NEGATIVE) Influenza Type B Ag (NEGATIVE) RSV (PCR) (NEGATIVE) SARS-CoV-2 (PCR) (NEGATIVE) 07/20/22 Range/Units 21:40 WBC 8.5 (4.0-10.5) x10^3/uL RBC 4.04 L (4.1-5.6) x10^6/uL Hgb 11.0 L (12.5-18.0) g/dL Hct 36.2 L (42-50) % MCV 89.6 (78-100) fL MCH 27.2 (26-32) pg MCHC 30.4 L (32-36) g/dL RDW 13.9 (11.5-14.0) % Plt Count 238 (150-450) x10^3/uL MPV 9.9 (7.5-11.0) fL Gran % 81.1 H (36.0-66.0) % Immature Gran % (Auto) 0.4 (0.00-0.4) % Nucleat RBC Rel Count 0.0 (0.00-0.1) % Eos # (Auto) 0.02 (0-0.5) x10^3/uL Immature Gran # (Auto) 0.03 (0.00-0.03) x10^3u/L Absolute Lymphs (auto) 0.79 L (1.0-4.6) x10^3/uL Absolute Monos (auto) 0.73 (0.0-1.3) x10^3/uL Absolute Nucleated RBC 0.00 (0.00-0.01) x10^3u/L Lymphocytes % 9.3 L (24.0-44.0) % Monocytes % 8.6 (0.0-12.0) % Eosinophils % 0.2 (0.00-5.0) % Basophils % 0.4 (0.0-0.4) % Absolute Granulocytes 6.86 (1.4-6.9) x10^3/uL Basophils # 0.03 (0-0.4) x10^3/uL PT (9.4-12.5) SECONDS INR (0.8-3.0) APTT (25.1-36.5) SECONDS Sodium (137-145) mmol/L Potassium (3.5-5.1) mmol/L Chloride (98-107) mmol/L Carbon Dioxide (22-30) mmol/L Anion Gap (5-15) MEQ/L BUN (9-20) mg/dL Creatinine (0.66-1.25) mg/dL Estimated GFR ML/MIN Glucose (74-106) mg/dL Calcium (8.4-10.2) mg/dL Magnesium (1.6-2.3) mg/dL Troponin I (0.000-0.034) ng/mL NT-Pro-B Natriuret Pep (<300) pg/mL Influenza Type A Ag (NEGATIVE) Influenza Type B Ag (NEGATIVE) RSV (PCR) (NEGATIVE) SARS-CoV-2 (PCR) (NEGATIVE) - Progress Progress: unchanged Air Movement: good Progress Note: Labs Hb 11, Cr 1.1, GFR >60, Mg 2.1, BNP 1940 Initial troponin 0.257, repeat troponin 0.278 Patient was given diltiazem 15mg IV and blood pressure, heart rate corrected to normal. Patient was also given IV Lasix and continues to make good urine. Lyssa ent still has no chest pain, shortness of breath. After the first troponin ER to ER transfer was attempted with [facility], but their Combination Worker was closed so they were unable to accept. Decision was made to then repeat second troponin 3 hours after the initial to see if the level down trended or remained stable, but it elevated to 0.278. We reached out to [facility], they have no beds available at this time. They thought they should have several beds coming available in the morning. I discussed the case with Dr. Franco who agrees to accept admission until patient is able to transfer to [facility] in the morning. Heparin drip and 324 mg of chewable aspirin was given to the patient. We attempted to reach out to [facility] to obtain his echo from his hospital discharge yesterday. Patient remains DNR/DNI comprehensive. Blood Culture(s) Obtained: No Antibiotics given: No Counseled pt/family regarding: lab results, diagnosis, need for follow-up Medical Desision Making - Discussion of managment Care discussed with:: specialist Reviewed:: Test results, Need for additional workup Agreed on:: Treatment plan - Diagnostic Testing Diagnostic test were ordered, analyzed, and reviewed by me: Yes Radiological Interpretation: Interpreted by me - Risk of complications The pt has a mod risk of morbidity or mortality based on: Need for prescription drug management The pt has a high risk of morbidity or mortality based on: Decision regarding hospitilization or escalation of hosp level of care - Departure Departure Disposition: In-patient Admission Clinical Impression: Atrial fibrillation, Elevated brain natriuretic peptide (BNP) level, 3+ pitting edema, Anemia, Hypertensive urgency Condition: Stable Critical Care Time: No Referrals: ALLI LEOS MD [Primary Care Provider] - Follow up/PCP as directed NATALIE BEGUM [CONSULTING PHYSICIAN] - Follow up/PCP as directed Instructions: Atrial Fibrillation (DC) Prescriptions: Furosemide 40 mg PO DAILY #5 tablet Potassium Chloride 20 meq PO DAILY #5 tablet
[2022-07-20] MEDS ORDERED: Cardizem IV 50 MG/10 ML IV ONE ×2 (22:20→22:25)
[2022-07-20 22:26] LABS: Absolute Neutrophil Ct (ANC) 6.86 x10^3/uL (1.4-6.9); BASOPHIL % 0.4 % (0.0-0.4); Basophil (Absolute #) 0.03 x10^3/uL (0-0.4); Eosinophil % 0.2 % (0.00-5.0); Eosinophil (Absolute #) 0.02 x10^3/uL (0-0.5); Hematocrit 36.2 % (42-50); IMMATURE GRAN # 0.03 x10^3u/L (0.00-0.03); IMMATURE GRAN % 0.4 % (0.00-0.4); Lymphocyte (Absolute #) 0.79 x10^3/uL (1.0-4.6); Lymphocytes % 9.3 % (24.0-44.0); Mean Cell Volume 89.6 fL (78-100); Mean Corpuscular Hemoglobin 27.2 pg (26-32); Mean Corpuscular Hgb Concent. 30.4 g/dL (32-36); Mean Platelet Volume 9.9 fL (7.5-11.0); Monocyte (Absolute #) 0.73 x10^3/uL (0.0-1.3); Monocytes % 8.6 % (0.0-12.0); Neutrophil % 81.1 % (36.0-66.0); Platelet Count 238 x10^3/uL (150-450); Red Blood Count 4.04 x10^6/uL (4.1-5.6); Red Cell Distribution Width 13.9 % (11.5-14.0); White Blood Count 8.5 x10^3/uL (4.0-10.5)
[2022-07-20 22:35] LABS: ANION GAP 10.6 MEQ/L (5-15); BLOOD UREA NITROGEN 18 mg/dL (9-20); CHLORIDE 102 mmol/L (98-107); Calcium 8.3 mg/dL (8.4-10.2); Carbon Dioxide 30 mmol/L (22-30); EST GLOMERULAR FILTRATION RATE > 60.0 ML/MIN; Glucose 113 mg/dL (74-106); MAGNESIUM 2.1 mg/dL (1.6-2.3); Potassium 4.1 mmol/L (3.5-5.1); SODIUM 139 mmol/L (137-145)
[2022-07-20] MEDS ORDERED: Lasix 40 MG/4 ML IV ONE ×2 (22:51→23:14)
[2022-07-20] MEDS ORDERED: Lasix 40 MG/4 ML ONE (23:14)
[2022-07-21] MEDS ORDERED: BABY ASPIRIN 81 MG CHEW PO ONE (01:50)
[2022-07-21] MEDS ORDERED: Heparin 25,000 units/D5W: USE ORDER SET PROTO 25,000 UNITS/250 ML BAG IV SCH (02:00)
[2022-07-21 02:16] LABS: INFLUENZA A NEGATIVE (NEGATIVE); INFLUENZA B NEGATIVE (NEGATIVE); RESPIRATORY SYNCTIAL VIRUS NEGATIVE (NEGATIVE); SARS-CoV-2 Xpert Express NEGATIVE (NEGATIVE)
[2022-07-21 02:30] LABS: INR 1.1 (0.8-3.0); PROTIME 11.9 SECONDS (9.4-12.5); PTT 30.3 SECONDS (25.1-36.5)
[2022-07-21] MEDS ORDERED: HEPARIN 5000 UNITS/0.5 ML (HIGH RISK MED) IV STA ×2 (02:34→11:19)
[2022-07-21] MEDS ORDERED: BABY ASPIRIN 81 MG CHEW ONE (02:35)
[2022-07-21] MEDS ORDERED: HEPARIN 5000 UNITS/0.5 ML (HIGH RISK MED) ONE (02:35)
[2022-07-21] MEDS ORDERED: TYLENOL 325 MG PO PRN (03:19)
[2022-07-21] MEDS ORDERED: MAALOX ES 30 ML UNIT DOSE PO PRN (03:19)
[2022-07-21] MEDS ORDERED: Nitrostat 0.4 MG Tablet SL PRN (03:19)
[2022-07-21] MEDS ORDERED: Senokot-S Tablet PO PRN (03:19)
[2022-07-21] MEDS ORDERED: Zofran 4 MG/2 ML VIAL IV PRN (03:19)
[2022-07-21] MEDS ORDERED: MILK OF MAGNESIA 30 ML PO PRN (03:19)
[2022-07-21] MEDS ORDERED: Lasix 40 MG/4 ML IV SCH ×2 (03:19→14:00)
--- NOTE | 2022-07-21 04:47 | PCM.HP ---
History of Present Illness - Chief Complaint Chief Complaint: NSTEMI Date: 07/21/22 History of Present Illness: Mr. Mahajan is an 87 year-old who presents with palpitations. He was recently discharged from an OSH with a diagnosis of new onset atrial fibrillation. Upon arrival to [place] he was found to be in Aib with RVR with rates in the 120s but which responded to one dose of IV diltiazem. On laboratory data, his cardiac enzymes were elevated, but he was not experiencing any chest pain or shortness of breath. His EKG revealed on abnormalities. On my examination, he is comfortable denying any current fevers, chills, nausea, vomiting, diarrhea, syncope, presyncope, visual changes, orthopnea, PND, odynophagia, dysphagia, chest pain, shortness of breath, belly pain, dysuria, hematuria, melena, hematochezia, or neurological changes. All other systems were reviewed and were negative. - Review of Systems Constitutional: Other ( PER HPI) Medications & Allergies Home Medications: Home Medication List Amlodipine Besylate 10 mg [Norvasc 10 MG] 10 mg PO HS 05/06/16 [History Confirmed 07/20/22] Atorvastatin Calcium [Lipitor] 10 mg PO HS 05/06/16 [History Confirmed 07/20/22] Finasteride 5 mg [Proscar 5 MG] 5 mg PO HS 05/06/16 [History Confirmed 07/20/22] Terazosin HCl 5 mg [Hytrin 5Mg] 5 mg PO HS 05/06/16 [History Confirmed 07/20/22] Apixaban [Eliquis] 5 mg PO BID 07/20/22 [History Confirmed 07/20/22] Furosemide 40 mg PO DAILY #5 tablet 07/20/22 [Rx] Metoprolol Succinate [Toprol Xl] 12.5 mg PO DAILY 07/20/22 [History Confirmed 07/20/22] Potassium Chloride 20 meq PO DAILY #5 tablet 07/20/22 [Rx] Allergies/Adverse Reactions: Allergies Allergy/AdvReac Type Severity Reaction Status Date / Time No Known Drug Allergies Allergy Verified 01/11/19 10:04 - Past Medical History Past Medical History: Yes Neurological History: No Pertinent History ENT History: Cataracts Cardiac History: Hypertension Respiratory History: No Pertinent History Endocrine Medical History: No Pertinent History Musculoskelatal History: No Pertinent History GI Medical History: No Pertinent History History: No Pertinent History Pyscho-Social History: No Pertinent History Male Reproductive Disorders: No Pertinent History Comment: 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, 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 - Past Surgical History Past Surgical History: Yes Neuro Surgical History: No Pertinent History Cardiac History: Cardiac Stent Respiratory Surgery: Lobectomy GI Surgical History: No Pertinent History Genitourinary Surgical Hx: No Pertinent History Musculskeletal Surgical Hx: No Pertinent History Male Surgical History: No Pertinent History Other Surgical History: repaired aaa - Social History Smoking Status: Former smoker How long have you smoked: 65 Exposure to second hand smoke: No Alcohol: None Drug Use: none - Physical Exam Vital Signs: Vital Signs - 24 hr Temp Pulse Pulse Resp BP Pulse Ox 07/21/22 03:19 97.7 F 107 H 18 163/84 97 07/21/22 03:07 57 L 20 148/93 97 07/21/22 02:00 78 21 117/84 97 07/21/22 01:00 70 21 139/67 98 07/21/22 00:00 67 20 145/66 97 07/20/22 23:00 90 22 157/77 97 07/20/22 22:24 98 07/20/22 22:22 102 H 16 145/99 98 07/20/22 21:18 97.5 F 119 H 112 H 12 178/123 99 General Appearance: no apparent distress Neurologic Exam: alert, oriented x 3 Eye Exam: PERRL/EOMI Ears, Nose, Throat Exam: normal ENT inspection Neck Exam: normal inspection Respiratory Exam: normal breath sounds Cardiovascular Exam: other (IRREGULARLY IRREGULAR) Gastrointestinal/Abdomen Exam: soft, normal bowel sounds Back Exam: normal inspection Extremity Exam: normal inspection Skin Exam: normal color, warm, dry Results - Labs Lab/Micro Results: Lab Results-Last 24 Hours 07/20/22 07/20/22 07/20/22 Range/Units 21:40 21:40 21:40 WBC 8.5 (4.0-10.5) x10^3/uL RBC 4.04 L (4.1-5.6) x10^6/uL Hgb 11.0 L (12.5-18.0) g/dL Hct 36.2 L (42-50) % MCV 89.6 (78-100) fL MCH 27.2 (26-32) pg MCHC 30.4 L (32-36) g/dL RDW 13.9 (11.5-14.0) % Plt Count 238 (150-450) x10^3/uL MPV 9.9 (7.5-11.0) fL Gran % 81.1 H (36.0-66.0) % Immature Gran % (Auto) 0.4 (0.00-0.4) % Nucleat RBC Rel Count 0.0 (0.00-0.1) % Eos # (Auto) 0.02 (0-0.5) x10^3/uL Immature Gran # (Auto) 0.03 (0.00-0.03) x10^3u/L Absolute Lymphs (auto) 0.79 L (1.0-4.6) x10^3/uL Absolute Monos (auto) 0.73 (0.0-1.3) x10^3/uL Absolute Nucleated RBC 0.00 (0.00-0.01) x10^3u/L Lymphocytes % 9.3 L (24.0-44.0) % Monocytes % 8.6 (0.0-12.0) % Eosinophils % 0.2 (0.00-5.0) % Basophils % 0.4 (0.0-0.4) % Absolute Granulocytes 6.86 (1.4-6.9) x10^3/uL Basophils # 0.03 (0-0.4) x10^3/uL PT (9.4-12.5) SECONDS INR (0.8-3.0) APTT (25.1-36.5) SECONDS Sodium 139 (137-145) mmol/L Potassium 4.1 (3.5-5.1) mmol/L Chloride 102 (98-107) mmol/L Carbon Dioxide 30 (22-30) mmol/L Anion Gap 10.6 (5-15) MEQ/L BUN 18 (9-20) mg/dL Creatinine 1.10 (0.66-1.25) mg/dL Estimated GFR > 60.0 ML/MIN Glucose 113 H (74-106) mg/dL Calcium 8.3 L (8.4-10.2) mg/dL Magnesium 2.1 (1.6-2.3) mg/dL Troponin I 0.257 H* (0.000-0.034) ng/mL NT-Pro-B Natriuret Pep (<300) pg/mL Influenza Type A Ag (NEGATIVE) Influenza Type B Ag (NEGATIVE) RSV (PCR) (NEGATIVE) SARS-CoV-2 (PCR) (NEGATIVE) 07/20/22 07/21/22 07/21/22 Range/Units 21:40 00:46 01:38 WBC (4.0-10.5) x10^3/uL RBC (4.1-5.6) x10^6/uL Hgb (12.5-18.0) g/dL Hct (42-50) % MCV (78-100) fL MCH (26-32) pg MCHC (32-36) g/dL RDW (11.5-14.0) % Plt Count (150-450) x10^3/uL MPV (7.5-11.0) fL Gran % (36.0-66.0) % Immature Gran % (Auto) (0.00-0.4) % Nucleat RBC Rel Count (0.00-0.1) % Eos # (Auto) (0-0.5) x10^3/uL Immature Gran # (Auto) (0.00-0.03) x10^3u/L Absolute Lymphs (auto) (1.0-4.6) x10^3/uL Absolute Monos (auto) (0.0-1.3) x10^3/uL Absolute Nucleated RBC (0.00-0.01) x10^3u/L Lymphocytes % (24.0-44.0) % Monocytes % (0.0-12.0) % Eosinophils % (0.00-5.0) % Basophils % (0.0-0.4) % Absolute Granulocytes (1.4-6.9) x10^3/uL Basophils # (0-0.4) x10^3/uL PT (9.4-12.5) SECONDS INR (0.8-3.0) APTT (25.1-36.5) SECONDS Sodium (137-145) mmol/L Potassium (3.5-5.1) mmol/L Chloride (98-107) mmol/L Carbon Dioxide (22-30) mmol/L Anion Gap (5-15) MEQ/L BUN (9-20) mg/dL Creatinine (0.66-1.25) mg/dL Estimated GFR ML/MIN Glucose (74-106) mg/dL Calcium (8.4-10.2) mg/dL Magnesium (1.6-2.3) mg/dL Troponin I 0.278 H* (0.000-0.034) ng/mL NT-Pro-B Natriuret Pep 1940 (<300) pg/mL Influenza Type A Ag NEGATIVE (NEGATIVE) Influenza Type B Ag NEGATIVE (NEGATIVE) RSV (PCR) NEGATIVE (NEGATIVE) SARS-CoV-2 (PCR) NEGATIVE (NEGATIVE) 07/21/22 Range/Units 02:10 WBC (4.0-10.5) x10^3/uL RBC (4.1-5.6) x10^6/uL Hgb (12.5-18.0) g/dL Hct (42-50) % MCV (78-100) fL MCH (26-32) pg MCHC (32-36) g/dL RDW (11.5-14.0) % Plt Count (150-450) x10^3/uL MPV (7.5-11.0) fL Gran % (36.0-66.0) % Immature Gran % (Auto) (0.00-0.4) % Nucleat RBC Rel Count (0.00-0.1) % Eos # (Auto) (0-0.5) x10^3/uL Immature Gran # (Auto) (0.00-0.03) x10^3u/L Absolute Lymphs (auto) (1.0-4.6) x10^3/uL Absolute Monos (auto) (0.0-1.3) x10^3/uL Absolute Nucleated RBC (0.00-0.01) x10^3u/L Lymphocytes % (24.0-44.0) % Monocytes % (0.0-12.0) % Eosinophils % (0.00-5.0) % Basophils % (0.0-0.4) % Absolute Granulocytes (1.4-6.9) x10^3/uL Basophils # (0-0.4) x10^3/uL PT 11.9 (9.4-12.5) SECONDS INR 1.10 (0.8-3.0) APTT 30.3 (25.1-36.5) SECONDS Sodium (137-145) mmol/L Potassium (3.5-5.1) mmol/L Chloride (98-107) mmol/L Carbon Dioxide (22-30) mmol/L Anion Gap (5-15) MEQ/L BUN (9-20) mg/dL Creatinine (0.66-1.25) mg/dL Estimated GFR ML/MIN Glucose (74-106) mg/dL Calcium (8.4-10.2) mg/dL Magnesium (1.6-2.3) mg/dL Troponin I (0.000-0.034) ng/mL NT-Pro-B Natriuret Pep (<300) pg/mL Influenza Type A Ag (NEGATIVE) Influenza Type B Ag (NEGATIVE) RSV (PCR) (NEGATIVE) SARS-CoV-2 (PCR) (NEGATIVE) - Radiology Impressions Radiology Exams & Impressions: Radiology Procedures Category Date Time Status ECHO W/2D AND DOPPLER [US] Routine Exams 07/21/22 03:19 Ordered - Other Procedures and Tests Respiratory Therapy 07/21/22 06:00 EKG ROUTINE 07/22/22 05:00 EKG ROUTINE 07/23/22 05:00 EKG ROUTINE Assessment/Plan (1) Atrial fibrillation with RVR Current Visit: No Status: Acute Assessment & Plan: ASSESSMENT 1. Atrial Fibrillation with RVR 2. Non-ST Elevation Myocardial Infarction, Type II 3. Hypertension 4. Hyperlipidemia PLAN 1. Repeat cardiac enzymes 2. Continue heparin gtt; hold eliquis 3. Good BP control 4. Needs transfer for at the very least a limited echo to ensure no WMA Heparin gtt/Famotidine The entirety of this encounter was done via telemedicine Ty Franco MD Pulmonary and Critical Care Medicine Code(s): I48.91 - UNSPECIFIED ATRIAL FIBRILLATION Telemedicine Encounter - Telemedicine Encounter Telemedicine Encounter: The entirety of this encounter was performed via Telemedicine"
--- NOTE | 2022-07-21 06:16 | XRAY ---
CLINICAL HISTORY:AFib with RVR and shortness of mathew; COMPARISON:X-ray dated 07/18/2022; TECHNIQUES:AP projection (1 view) of the chest X-ray was obtained; FINDINGS: There are ECG cables superimposing on both hemithorax. The trachea is midline. The cardiac silhouette is normal in size. Arch of aorta is prominent. Mediastinal and hilar silhouette within the normal limits of shape and size. The right lower zone aeration is decreased with hazy densities obscuring the right hemidiaphragm. Right costophrenic angle is obscured with mild pleural effusion. Both lungs show increased aeration which denotes emphysema. There is a 0.3 cm nodule in the left lower zone. No pneumothorax. Degenerative changes in thoracic spine. IMPRESSION: 1. Findings are suggestive of consolidation and/or compression/atelectasis secondary to pleural effusion in the right lung field. Please evaluate clinically. 2. Mild right pleural effusion. 3. 0.3 cm nodule in the left lower zone. 4. Bilateral emphysema. 5. No interval changes when compared to the previous examination. Electronically Signed by: Josh Solorzano MD. (07/21/2022 05:14:01 CLINICAL PROFESSOR)
[2022-07-21 06:50] LABS: Risk Ratio 3.2
[2022-07-21 08:41] VITALS: O2SAT 95
[2022-07-21] MEDS ORDERED: Toprol-Xl 25MG Tablets PO SCH (10:00)
[2022-07-21] MEDS ORDERED: Pepcid 20 MG VIAL IV SCH (10:00)
[2022-07-21 13:01] VITALS: BP 177/77; PULSE 88
[2022-07-21] MEDS ORDERED: NORVASC 5 MG PO SCH (22:00)
[2022-07-21] MEDS ORDERED: Zocor 10MG PO SCH (22:00)
[2022-07-21] MEDS ORDERED: LIPITOR 40MG PO SCH (22:00)
== END 2022-07-21 13:36 | disposition home or self-care (01) | DRG 282 ==
LOC: ED 21:17 → MED SURG 07-21 03:17
PROVIDERS: ADMIT Internal Medicine Critical Care Medicine; ATTEND Family Medicine
DX: I48.20 Chronic atrial fibrillation, unspecified (principal); I21.A1 Myocardial infarction type 2; I10 Essential (primary) hypertension; E78.5 Hyperlipidemia, unspecified; Z79.01 Long term (current) use of anticoagulants; Z79.899 Other long term (current) drug therapy; Z20.828 Contact with and (suspected) exposure to other viral communicable diseases
CPT/HCPCS: 0241U; 36000; 36415; 71045; 80048; 80061; 82550; 83721; 83735; 83880; 84484; 85025; 85610; 85730; 93005; 93041; 94760; 96374; 96375; 99285; G0378; J1644; J1940; A9270-GY

== ENCOUNTER 2022-08-01 15:51 | Emergency (ER) | payer MEDICARE ==
[2022-08-01 16:15] VITALS: BP 152/70; PULSE 76; O2SAT 97
--- NOTE | 2022-08-01 16:23 | ERPHSYRPT ---
- History of Present Illness Time Seen by Provider: 08/01/22 15:56 Source: patient Exam Limitations: no limitations Patient Subjective Stated Complaint: pt here for fc came out , unknown when he had it placed 2 days ago. Triage Nursing Assessment: pt alert,walked in, resp easy, skin w/d/p,cath out and dangling from leg bag Physician History: Patient arrives with having a dislodged Sarah catheter. Patient states that 2 days ago he had a Sarah catheter placed at Dr. Gallardo's office. Recently underwent cardiac catheterization has not been able to pee since then. No falls no trauma. No other fevers or chills. Patient states that he did not notice that his catheter had come out. States he has not peed in 2 days. Surprisingly, he has no abdominal pain, fever, chills, nausea, vomiting. No other systemic signs of illness. Allergies/Adverse Reactions: No Known Drug Allergies Allergy (Verified 08/01/22 16:14) Home Medications: Amlodipine Besylate 10 mg [Norvasc 10 MG] 10 mg PO HS 05/06/16 [History] Atorvastatin Calcium [Lipitor] 10 mg PO HS 05/06/16 [History] Finasteride 5 mg [Proscar 5 MG] 5 mg PO HS 05/06/16 [History] Terazosin HCl 5 mg [Hytrin 5Mg] 5 mg PO HS 05/06/16 [History] Apixaban [Eliquis] 5 mg PO BID 07/20/22 [History] Metoprolol Succinate [Toprol Xl] 12.5 mg PO DAILY 07/20/22 [History] Hx Tetanus, Diphtheria Vaccination/Date Given: No Hx Influenza Vaccination/Date Given: Yes Hx Pneumococcal Vaccination/Date Given: Yes Immunizations Up to Date: Yes Travel Risk - International Travel Have you traveled outside of the country in past 3 weeks: No - Coronavirus Screening Are you exhibiting any of the following symptoms?: No Close contact with a COVID-19 positive Pt in past 14-21 Days: No - Vaccine Status Have you recieved a Covid-19 vaccination: Yes 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: [employer] - Vaccination Dates Date of 2cond Vaccination (if applicable): 2020 - Past Medical History Pertinent Past Medical History: Yes Neurological History: No Pertinent History ENT History: Cataracts Cardiac History: Hypertension Respiratory History: No Pertinent History Endocrine Medical History: No Pertinent History Musculoskeletal History: No Pertinent History GI Medical History: No Pertinent History History: No Pertinent History Psycho-Social History: No Pertinent History Male Reproductive Disorders: No Pertinent History 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, 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 - Past Surgical History Past Surgical History: Yes Neuro Surgical History: No Pertinent History Cardiac: Cardiac Stent Respiratory: Lobectomy Gastrointestinal: No Pertinent History Genitourinary: No Pertinent History Musculoskeletal: No Pertinent History Male Surgical History: No Pertinent History Other Surgical History: repaired aaa - Social History Smoking Status: Former smoker How long have you smoked: 65 Exposure to second hand smoke: No Drug Use: none Patient Lives Alone: Yes - Review of Systems Constitutional: No Fever, No Chills Eyes: No Symptoms Ears, Nose, & Throat: No Symptoms Respiratory: No Cough, No Dyspnea Cardiac: No Chest Pain, No Edema, No Syncope Abdominal/Gastrointestinal: No Abdominal Pain, No Nausea, No Vomiting, No Diarrhea Genitourinary Symptoms: No Dysuria Musculoskeletal: No Back Pain, No Neck Pain Skin: No Rash Neurological: No Dizziness, No Focal Weakness, No Sensory Changes Psychological: No Symptoms Endocrine: No Symptoms All Other Systems: Reviewed and Negative - Nursing Vital Signs Nursing Vital Signs: Initial Vital Signs Temperature 97.8 F 08/01/22 16:14 Pulse Rate 76 08/01/22 16:14 Respiratory Rate 18 08/01/22 16:14 Blood Pressure 152/70 08/01/22 16:14 O2 Sat by Pulse Oximetry 97 08/01/22 16:14 Pain Scale Pain Intensity 0 - Physical Exam General Appearance: no apparent distress, alert Eye Exam: PERRL/EOMI Ears, Nose, Throat Exam: pharynx normal, moist mucous membranes Neck Exam: normal inspection, supple Respiratory Exam: normal breath sounds, lungs clear Cardiovascular Exam: regular rate/rhythm, No edema Gastrointestinal/Abdomen Exam: soft, No tenderness Back Exam: normal inspection, No CVA tenderness Extremity Exam: normal inspection, normal range of motion, No pedal edema Neurologic Exam: alert, oriented x 3, cooperative, sensation nml, No motor deficits Skin Exam: normal color, warm, dry, No rash SpO2: 97 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 Patient's Sarah catheter is not in place. - Course Nursing assessment & vital signs reviewed: Yes - Progress Progress: improved Progress Note: 08/01/22 16:24 Sarah catheter was inserted. See nursing note for full details. No further interventions in the emergency department today. Plan for discharge home. - Departure Departure Disposition: Home Clinical Impression: Sarah catheter problem Condition: Stable Critical Care Time: No Referrals: ALLI LEOS MD [Primary Care Provider] - Follow up/PCP as directed Instructions: How to Care for Your Sarah Catheter, Male
== END 2022-08-01 16:32 | disposition home or self-care (01) ==
LOC: ED 15:51
DX: T83.028A Displacement of other urinary catheter, initial encounter (principal); I10 Essential (primary) hypertension; Z79.01 Long term (current) use of anticoagulants; Z79.899 Other long term (current) drug therapy
CPT/HCPCS: 51702; 99282

== ENCOUNTER 2022-08-08 05:07 | Emergency (ER) | payer MEDICARE ==
[2022-08-08 06:01] LABS: Appearance Clear (Clear); Bacteria None Seen /HPF (None Seen); Bilirubin Negative (Negative); Blood Trace (Negative); Epithelial Cells None Seen /HPF (None Seen); Glucose, Urine Negative (Negative); Hyaline Casts NONE SEEN /LPF (0-2); Ketones Negative (Negative); Leukocyte Esterase Negative (Negative); Nitrite Negative (Negative); Ph 5.5 (4.6-8.0); Protein,Urine Dip Negative (Negative); WBC 0-2 /HPF (0-5)
[2022-08-08 06:04] LABS: ADD URINE CULTURE? ORDERED SEPARATELY (NO)
[2022-08-08 06:15] VITALS: BP 109/60; PULSE 67
[2022-08-08 06:17] VITALS: O2SAT 100
--- NOTE | 2022-08-08 06:17 | ERPHSYRPT ---
- History of Present Illness Time Seen by Provider: 08/08/22 06:12 Source: patient Exam Limitations: no limitations Patient Subjective Stated Complaint: pt states he had his catheter taken out yesterday in the urologists office and has not urinated much since. states when he did urinate, he went in very small amounts. c/o pain in bladder area Triage Nursing Assessment: pt alert and oriented, answers questions approp. pt ambulatory with slow steady gait noted. pt c/o pain over bladder area. skin warm and dry. gardiner cath anchored with return of 750cc of clear straw colored urine. pt tolerated well and states pain is resolved now. Physician History: Patient is an 87-year-old male presents to our ED for evaluation of urinary retention. Patient had a Gardiner catheter in place over the past week. Gardiner catheter was removed yesterday. Patient felt well immediately after leaving his urologist office. However over the course of the day patient states his urine output had decreased in volume. Patient urinated several times however the volume was small. Patient began experiencing suprapubic pain overnight. Patient states the pain became significant and therefore came into our ED for an evaluation. No other complaints. No fever. No abdominal pain. No nausea vomiting or diarrhea. No rash no trauma. Patient otherwise feels well. He voices no other complaints or concerns at this time. Portions of this note were created with voice recognition technology. There may be grammatical, spelling, punctuation or sound alike errors Timing/Duration: today Severity: moderate Modifying Factors: Improves With: nothing Associated Symptoms: denies symptoms Allergies/Adverse Reactions: No Known Drug Allergies Allergy (Verified 08/08/22 05:32) Home Medications: Amlodipine Besylate 10 mg [Norvasc 10 MG] 10 mg PO HS 05/06/16 [History] Atorvastatin Calcium [Lipitor] 10 mg PO HS 05/06/16 [History] Finasteride 5 mg [Proscar 5 MG] 5 mg PO HS 05/06/16 [History] Terazosin HCl 5 mg [Hytrin 5Mg] 5 mg PO HS 05/06/16 [History] Apixaban [Eliquis] 5 mg PO BID 07/20/22 [History] Metoprolol Succinate [Toprol Xl] 12.5 mg PO DAILY 07/20/22 [History] Hx Tetanus, Diphtheria Vaccination/Date Given: No Hx Influenza Vaccination/Date Given: Yes Hx Pneumococcal Vaccination/Date Given: Yes Immunizations Up to Date: No Travel Risk - International Travel Have you traveled outside of the country in past 3 weeks: No - Coronavirus Screening Are you exhibiting any of the following symptoms?: No Close contact with a COVID-19 positive Pt in past 14-21 Days: No - Vaccine Status Have you recieved a Covid-19 vaccination: Yes 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: [employer] - Vaccination Dates Date of 2cond Vaccination (if applicable): 2020 - Review of Systems Constitutional: No Symptoms, No Fever, No Chills Eyes: No Symptoms Ears, Nose, & Throat: No Symptoms Respiratory: No Symptoms, No Cough, No Dyspnea Cardiac: No Symptoms, No Chest Pain, No Edema, No Syncope Abdominal/Gastrointestinal: No Symptoms, No Abdominal Pain, No Nausea, No Vomiting, No Diarrhea Genitourinary Symptoms: No Symptoms, No Dysuria Musculoskeletal: No Symptoms, No Back Pain, No Neck Pain Skin: No Symptoms, No Rash Neurological: No Symptoms, No Dizziness, No Focal Weakness, No Sensory Changes Psychological: No Symptoms Endocrine: No Symptoms Hematologic/Lymphatic: No Symptoms Immunological/Allergic: No Symptoms All Other Systems: Reviewed and Negative - Past Medical History Pertinent Past Medical History: Yes Neurological History: No Pertinent History ENT History: Cataracts Cardiac History: Hypertension Respiratory History: No Pertinent History Endocrine Medical History: No Pertinent History Musculoskeletal History: No Pertinent History GI Medical History: No Pertinent History History: No Pertinent History Psycho-Social History: No Pertinent History Male Reproductive Disorders: No Pertinent History 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, 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 - Past Surgical History Past Surgical History: Yes Neuro Surgical History: No Pertinent History Cardiac: Cardiac Stent Respiratory: Lobectomy Gastrointestinal: No Pertinent History Genitourinary: No Pertinent History Musculoskeletal: No Pertinent History Male Surgical History: No Pertinent History Other Surgical History: repaired aaa - Social History Smoking Status: Former smoker How long have you smoked: 65 Exposure to second hand smoke: No Drug Use: none Patient Lives Alone: Yes - Nursing Vital Signs Nursing Vital Signs: Initial Vital Signs Temperature 8 F 08/08/22 05:13 Pulse Rate 82 08/08/22 05:13 Respiratory Rate 20 08/08/22 05:13 Blood Pressure 129/65 08/08/22 05:13 O2 Sat by Pulse Oximetry 100 08/08/22 05:13 Pain Scale Pain Intensity 8 - Physical Exam General Appearance: no apparent distress, alert Eye Exam: PERRL/EOMI, eyes nml inspection Ears, Nose, Throat Exam: normal ENT inspection, TMs normal, pharynx normal, moist mucous membranes Neck Exam: normal inspection, non-tender, supple, full range of motion Respiratory Exam: normal breath sounds, lungs clear, airway intact, No respiratory distress Cardiovascular Exam: regular rate/rhythm, normal heart sounds, normal peripheral pulses Gastrointestinal/Abdomen Exam: soft, normal bowel sounds, No tenderness, No mass Back Exam: normal inspection, normal range of motion, No CVA tenderness, No vertebral tenderness Extremity Exam: normal inspection, normal range of motion, pelvis stable, pedal edema (Bilateral lower extremity pedal edema observed. However patient states this is chronic and is currently at his baseline level of swelling. He has no complaints with regard to his leg swelling. No shortness of breath. No chest pain) Neurologic Exam: alert, oriented x 3, cooperative, normal mood/affect, nml cerebellar function, nml station & gait, sensation nml, No motor deficits Skin Exam: normal color, warm, dry, No rash Lymphatic Exam: No adenopathy SpO2 Interpretation: normal SpO2: 100 O2 Delivery: Room Air - Course Nursing assessment & vital signs reviewed: Yes Ordered Tests: Active Orders 24 hr Category Date Time Status CULTURE,URINE Stat Lab 08/08/22 05:27 Received UA W/RFX UR CULTURE Stat Lab 08/08/22 05:27 Completed Lab/Rad Data: Laboratory Results 08/08/22 Range/Units 05:27 Urine Color Yellow (Yellow) Urine Appearance Clear (Clear) Urine pH 5.5 (4.6-8.0) Ur Specific [place] 1.010 (1.005-1.030) Urine Protein Negative (Negative) Urine Glucose (UA) Negative (Negative) mg/dL Urine Ketones Negative (Negative) Urine Blood Trace (Negative) Urine Nitrite Negative (Negative) Urine Bilirubin Negative (Negative) Urine Urobilinogen 1.0 A (0.2) mg/dL Ur Leukocyte Esterase Negative (Negative) U Hyaline Cast (Auto) NONE SEEN (0-2) /LPF Urine Microscopic RBC 3-5 (0-5) /HPF Urine Microscopic WBC 0-2 (0-5) /HPF Ur Epithelial Cells None Seen (None Seen) /HPF Urine Bacteria None Seen (None Seen) /HPF Urine Culture Reflexed ORDERED SEPARATELY (NO) - Progress Progress: improved Progress Note: Patient is an 87-year-old male with a history of urinary retention presents to our ED with the same. Patient's Gardiner catheter was removed yesterday at his urologist office. Patient presented to our ED as he was experiencing suprapubic pain. A Gardiner catheter was inserted. Approximately 750 cc of clear urine was immediately drained. Patient experienced immediate relief of the suprapubic pain. Patient currently asymptomatic. Urinalysis was run on patient's urine. No urinary tract infection observed. No indication for antibiotics. No indication for pain medication as patient pain-free after placement of Gardiner catheter. RN placed a leg bag Gardiner. We will maintain Gardiner. Patient will contact his urologist today to schedule a follow-up appointment. Patient feels well. He voices no other complaints concerns at this time. Portions of this note were created with voice recognition technology. There may be grammatical, spelling, punctuation or sound alike errors Patient's presenting problem was acute. Complexity of problem addressed is moderate. Chronic illness with exacerbation. No critical care time. No imaging studies indicated. Patient served as independent historian. Test ordered. Test reviewed. Dr. Mejia independently reviewed and analyzed patient's urinalysis. Complex of data reviewed and analyzed is moderate. Risk of complication and or risk of morbidity/mortality of patient management is moderate. Gardiner catheter inserted. Gardiner catheter will be maintained. No indication for further evaluation or treatment. No indication for antibiotics. Patient voices no other complaints or concerns at this time. Will discharge ho me. Vital stable. Portions of this note were created with voice recognition technology. There may be grammatical, spelling, punctuation or sound alike errors Counseled pt/family regarding: lab results, diagnosis, rad results - Departure Departure Disposition: Home Clinical Impression: Urinary retention Condition: Stable Critical Care Time: No Referrals: ALLI LEOS MD [Primary Care Provider] - Follow up/PCP as directed Additional Instructions: Discharge/Care Plan MOISES HERRERA was seen on 08/08/22 in the Emergency Room. The patient was counseled regarding Diagnosis,Lab results, Imaging studies, need for follow up and when to return to the Emergency Room. Prescriptions given: Discharge Note I have spoken with the patient and/or caregivers. I have explained the patient's condition, diagnosis and treatment plan based on the information available to me at this time. I have answered the patient's and/or caregiver's questions and addressed any concerns. The patient and/or caregivers have as good understanding of the patient's diagnosis, condition and treatment plan as can be expected at this point. The vital signs have been stable. The patient's condition is stable and appropriate for discharge from the emergency department. The patient will pursue further outpatient evaluation with the primary care physician or other designated or consulting physician as outlined in the discharge instructions. The patient and/or caregivers are agreeable to this plan of care and follow-up instructions have been explained in detail. The patient and/or caregivers have received these instruction. The patient/and or caregivers are aware that any significant change in condition or worsening of symptoms should prompt an immediate return to this or the closest emergency department or call 911.
== END 2022-08-08 06:21 | disposition home or self-care (01) ==
LOC: ED 05:07
DX: R33.9 Retention of urine, unspecified (principal); R10.2 Pelvic and perineal pain; I10 Essential (primary) hypertension; Z79.01 Long term (current) use of anticoagulants; Z79.899 Other long term (current) drug therapy; Z20.828 Contact with and (suspected) exposure to other viral communicable diseases
CPT/HCPCS: 51702; 81001; 87086; 99283

== ENCOUNTER 2022-09-27 18:03 | Emergency (ER) | payer MEDICARE ==
--- NOTE | 2022-09-27 18:24 | ERPHSYRPT ---
- History of Present Illness Source: patient, family Exam Limitations: no limitations Patient Subjective Stated Complaint: pt states that he had a cath removed yesterday and is unable to urinate Triage Nursing Assessment: pt ambulated into the er; pt is axo x2; c/o urinary retention; tenderness present to lower abd; active bowel sounds in all quads; pt denies having a void today; cath was placed on arrival; urine yellow and cloudy; urine output was 600 mL; skin is PDW; SOB present; pt is holding lower abd; hypertensive Timing/Duration: today, worse Activites at Onset: none Quality: aching (Suprapubic), cramping (Suprapubic) Onset Location: suprapubic Modifying Factors: Improves With: nothing Associated Symptoms: abdominal pain (Suprapubic), other (Urinary retention), No fever, No chills Prior abdominal problems: none Sexual intercourse history: non-contributory Hx Tetanus, Diphtheria Vaccination/Date Given: No Hx Influenza Vaccination/Date Given: Yes Hx Pneumococcal Vaccination/Date Given: Yes <SUSAN BAÑUELOS - Last Filed: 09/27/22 18:43> <ROSALEE CARMONA - Last Filed: 09/27/22 19:00> - History of Present Illness Time Seen by Provider: 09/27/22 18:24 Physician History: This is an 87-year-old white male patient who had his Sarah catheter removed at his urologist office ([facility] at Dr. Koehler's office) yesterday, 09/26/2022. Since it was removed, he has not urinated. Today he has a lot of pressure in the suprapubic region. That is his only complaint. A Sarah catheter was replaced today in the emergency department and immediately drained 600 mL of cloudy urine. Patient received instant relief and we sent the urine specimen to the lab for evaluation. (SUSAN BAÑUELOS) Allergies/Adverse Reactions: No Known Drug Allergies Allergy (Verified 09/27/22 18:20) Home Medications: Amlodipine Besylate 10 mg [Norvasc 10 MG] 10 mg PO HS 05/06/16 [History] Atorvastatin Calcium [Lipitor] 10 mg PO HS 05/06/16 [History] Finasteride 5 mg [Proscar 5 MG] 5 mg PO HS 05/06/16 [History] Terazosin HCl 5 mg [Hytrin 5Mg] 5 mg PO HS 05/06/16 [History] Apixaban [Eliquis] 5 mg PO BID 07/20/22 [History] Metoprolol Succinate [Toprol Xl] 50 mg PO DAILY 07/20/22 [History] Clopidogrel Bisulfate [Clopidogrel] 75 mg PO DAILY 09/27/22 [History] Diltiazem HCl [Diltiazem 12Hr ER] 120 mg PO DAILY 09/27/22 [History] Lisinopril 10 mg [Zestril 10 MG] 10 mg PO DAILY 09/27/22 [History] Travel Risk - International Travel Have you traveled outside of the country in past 3 weeks: No - Coronavirus Screening Are you exhibiting any of the following symptoms?: No Close contact with a COVID-19 positive Pt in past 14-21 Days: No - Vaccine Status Have you recieved a Covid-19 vaccination: 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[employer] - Vaccination Dates Date of 2cond Vaccination (if applicable): 2020 <SUSAN BAÑUELOS - Last Filed: 09/27/22 18:43> - Past Medical History Pertinent Past Medical History: Yes Neurological History: No Pertinent History ENT History: Cataracts Cardiac History: Hypertension Respiratory History: No Pertinent History Endocrine Medical History: No Pertinent History Musculoskeletal History: No Pertinent History GI Medical History: No Pertinent History History: No Pertinent History Psycho-Social History: No Pertinent History Male Reproductive Disorders: No Pertinent History 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, 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 - Past Surgical History Past Surgical History: Yes Neuro Surgical History: No Pertinent History Cardiac: Cardiac Stent Respiratory: Lobectomy Gastrointestinal: No Pertinent History Genitourinary: No Pertinent History Musculoskeletal: No Pertinent History Male Surgical History: No Pertinent History Other Surgical History: repaired aaa - Social History Smoking Status: Former smoker How long have you smoked: 65 Exposure to second hand smoke: No Drug Use: none Patient Lives Alone: Yes <SUSAN BAÑUELOS - Last Filed: 09/27/22 18:43> - Review of Systems Constitutional: No Symptoms Eyes: No Symptoms Ears, Nose, & Throat: No Symptoms Respiratory: No Symptoms Cardiac: No Symptoms Abdominal/Gastrointestinal: Abdominal Pain (Prepubic) Genitourinary Symptoms: Urinary Retention Musculoskeletal: No Symptoms Skin: No Symptoms Neurological: No Symptoms Psychological: No Symptoms Endocrine: No Symptoms Hematologic/Lymphatic: No Symptoms Immunological/Allergic: No Symptoms All Other Systems: Reviewed and Negative <SUSAN BAÑUELOS - Last Filed: 09/27/22 18:43> - Physical Exam General Appearance: no apparent distress, alert, anxiety Eye Exam: PERRL/EOMI, eyes nml inspection Ears, Nose, Throat Exam: normal ENT inspection, moist mucous membranes Neck Exam: normal inspection, non-tender, supple, full range of motion Respiratory Exam: normal breath sounds, lungs clear, airway intact, No chest tenderness, No respiratory distress Cardiovascular Exam: regular rate/rhythm, normal heart sounds, normal peripheral pulses Gastrointestinal/Abdomen Exam: soft, normal bowel sounds, tenderness (Suprapubic to palpation), No guarding, No rebound Rectal Exam: not done Back Exam: normal inspection, normal range of motion, No CVA tenderness, No vertebral tenderness Extremity Exam: normal inspection, normal range of motion, pelvis stable Neurologic Exam: alert, oriented x 3, cooperative, acid patroller II-XII nml as tested, normal mood/affect, nml cerebellar function, nml station & gait, sensation nml Skin Exam: normal color, warm, dry Lymphatic Exam: No adenopathy SpO2 Interpretation: normal SpO2: 98 O2 Delivery: Room Air <SUSAN BAÑUELOS - Last Filed: 09/27/22 18:43> - Nursing Vital Signs Nursing Vital Signs: Initial Vital Signs Temperature 98.1 F 09/27/22 18:05 Pulse Rate 98 H 09/27/22 18:05 Respiratory Rate 20 09/27/22 18:05 Blood Pressure 180/100 09/27/22 18:05 O2 Sat by Pulse Oximetry 99 09/27/22 18:05 Pain Scale Pain Intensity 8 - Course Nursing assessment & vital signs reviewed: Yes <SUSAN BAÑUELOS - Last Filed: 09/27/22 18:43> Ordered Tests: Active Orders 24 hr Category Date Time Status CULTURE,URINE Stat Lab 09/27/22 18:25 Received UA W/RFX UR CULTURE Stat Lab 09/27/22 18:25 Completed Lab/Rad Data: Laboratory Results 09/27/22 Range/Units 18:25 Urine Color Yellow (Yellow) Urine Appearance Cloudy A (Clear) Urine pH 7.0 (4.6-8.0) Ur Specific [place] 1.015 (1.005-1.030) Urine Protein Trace A (Negative) Urine Glucose (UA) Negative (Negative) mg/dL Urine Ketones Negative (Negative) Urine Blood NHT (Negative) Urine Nitrite Positive A (Negative) Urine Bilirubin Negative (Negative) Urine Urobilinogen 0.2 (0.2) mg/dL Ur Leukocyte Esterase Small A (Negative) U Hyaline Cast (Auto) 3-5 A (0-2) /LPF Urine Microscopic RBC 0-2 (0-5) /HPF Urine Microscopic WBC 11-20 A (0-5) /HPF Ur Epithelial Cells Rare (None Seen) /HPF Urine Bacteria Many A (None Seen) /HPF Urine Culture Reflexed YES (NO) - Progress Progress: improved, re-examined Counseled pt/family regarding: lab results, diagnosis, need for follow-up <SUSAN BAÑUELOS - Last Filed: 09/27/22 18:43> - Progress Progress: improved <ROSALEE CARMONA - Last Filed: 09/27/22 19:00> - Progress Progress Note: 09/27/22 18:32 This patient's medical issue is 1 of low complexity. Level of complexity and the work-up performed is based on the past medical history, review of the patient's medication list, review of the patient's drug allergy list, history of present illness and physical findings on examination. The only laboratory study needed this patient is urinalysis. Patient has urinary retention following removal of Sarah catheter yesterday, 09/26/2022. The nurses placed a new urinary Sarah catheter in this patient. 600 mL of urine immediately drained with significant improvement of the patient's suprapubic tenderness/pain. The urine was sent to the lab for evaluation. Likely, the patient will have an infection present. He is currently not on any antibiotics. Will await the results of the urinalysis and give him a dose of intramuscular Rocephin 1 g here in the emergency department if there is an infection that warrants it, followed by Cipro 500 mg orally twice a day for 7 days to be remotely sent to his pharmacy. He is to follow-up tomorrow, 09/28/2022, with his urologist for further instructions and management. 09/27/22 18:43 Transfer of care of this patient to Dr. Carmona at shift change. He will follow-up on the test results and make final recommendations, treatment and disposition. (SUSAN BAÑUELOS) Medical Desision Making - Diagnostic Testing Diagnostic test were ordered, analyzed, and reviewed by me: Yes - Risk of complications The pt has a mod risk of morbidity or mortality based on: Need for prescription drug management <SUSAN BAÑUELOS - Last Filed: 09/27/22 18:43> - Departure Departure Disposition: Home Critical Care Time: No <SUSAN BAÑUELOS - Last Filed: 09/27/22 18:43> - Departure Critical Care Time: No <ROSALEE CARMONA - Last Filed: 09/27/22 19:00> - Departure Clinical Impression: Urinary retention, Urinary tract infection Condition: Stable Referrals: ALLI LEOS MD [Primary Care Provider] - Follow up/PCP as directed Additional Instructions: Continue the Sarah catheter as an outpatient. Contact your urologist tomorrow, 09/28/2022, to obtain further instructions and management. Take your medications as prescribed. Prescriptions: Cephalexin Mh 500 mg [Keflex 500 mg] 500 mg PO QID #40 cap
[2022-09-27 18:34] LABS: Appearance Cloudy (Clear); Bacteria Many /HPF (None Seen); Bilirubin Negative (Negative); Blood NHT (Negative); Epithelial Cells Rare /HPF (None Seen); Glucose, Urine Negative (Negative); Ketones Negative (Negative); Leukocyte Esterase Small (Negative); Nitrite Positive (Negative); Protein,Urine Dip Trace (Negative); RBC 0-2 /HPF (0-5); Specific Gravity 1.015 (1.005-1.030); Urobilinogen 0.2 mg/dL (0.2)
[2022-09-27 18:38] LABS: ADD URINE CULTURE? YES (NO)
[2022-09-27] MEDS ORDERED: Rocephin 1000 MG INJ ONE (19:03)
[2022-09-27] MEDS: Rocephin 500 MG INJ IM ONE (19:10)
[2022-09-27] MEDS: Rocephin 1000 MG INJ IM ONE (19:11)
[2022-09-27 19:27] VITALS: BP 158/75; PULSE 80; O2SAT 97
== END 2022-09-27 19:43 | disposition home or self-care (01) ==
LOC: ED 18:03
DX: N39.0 Urinary tract infection, site not specified (principal); R33.9 Retention of urine, unspecified; I10 Essential (primary) hypertension; Z79.01 Long term (current) use of anticoagulants; Z79.02 Long term (current) use of antithrombotics/antiplatelets; Z79.899 Other long term (current) drug therapy
CPT/HCPCS: 81001; 87077; 87086; 87186; 96372; 99283; J0696

== ENCOUNTER 2022-10-17 12:41 | Emergency (ER) | payer MEDICARE ==
--- NOTE | 2022-10-17 13:04 | ERPHSYRPT ---
- History of Present Illness Time Seen by Provider: 10/17/22 12:50 Source: patient Exam Limitations: no limitations Patient Subjective Stated Complaint: Pt states "I went to [place] to see the urology girl and they took out my catheter and ever since I am not getting much out and it really hurts." Triage Nursing Assessment: PT presented alert and oriented X 3, skin pwd.Pt ambulates with a slow gait, able to speak in clear full sentences. Pt restless and not able to sit still. 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 He sees Dr. Koehler the urologist in [facility]. Patient was here on 09/27/2022 for the same issue. That is, soon after the Sarah catheter was removed in this patient, the patient began having significant suprapubic pressure. On that visit we replaced the Sarah catheter and 600 mL of urine immediately was removed and the patient received significant symptomatic relief. He had a urinary tract infection and we placed him on antibiotics for that at that time. Today, the patient had his Sarah catheter removed earlier and within a few short hours he began having significant suprapubic pressure. He presents to the emergency department where we placed a Sarah catheter and 500 mL of urine output relieved his symptoms. This was immediate output of urine. Patient has a history of hypertension, atrial fibrillation and is also on Eliquis and Plavix. Patient has no chest pain no shortness of breath Timing/Duration: today Activites at Onset: none Quality: pressure Onset Location: suprapubic Pain Radiation: none Severity of Pain-Max: moderate Severity of Pain-Current: moderate Associated Symptoms: abdominal pain (Suprapubic pressure) Sexual intercourse history: non-contributory Allergies/Adverse Reactions: No Known Drug Allergies Allergy (Verified 09/27/22 18:20) Home Medications: Amlodipine Besylate 10 mg [Norvasc 10 MG] 10 mg PO HS 05/06/16 [History] Atorvastatin Calcium [Lipitor] 10 mg PO HS 05/06/16 [History] Finasteride 5 mg [Proscar 5 MG] 5 mg PO HS 05/06/16 [History] Terazosin HCl 5 mg [Hytrin 5Mg] 5 mg PO HS 05/06/16 [History] Apixaban [Eliquis] 5 mg PO BID 07/20/22 [History] Metoprolol Succinate [Toprol Xl] 50 mg PO DAILY 07/20/22 [History] Clopidogrel Bisulfate [Clopidogrel] 75 mg PO DAILY 09/27/22 [History] Diltiazem HCl [Diltiazem 12Hr ER] 120 mg PO DAILY 09/27/22 [History] Lisinopril 10 mg [Zestril 10 MG] 10 mg PO DAILY 09/27/22 [History] Hx Tetanus, Diphtheria Vaccination/Date Given: No Hx Influenza Vaccination/Date Given: Yes Hx Pneumococcal Vaccination/Date Given: Yes Immunizations Up to Date: Yes Travel Risk - International Travel Have you traveled outside of the country in past 3 weeks: No - Coronavirus Screening Are you exhibiting any of the following symptoms?: No Close contact with a COVID-19 positive Pt in past 14-21 Days: No - Vaccine Status Have you recieved a Covid-19 vaccination: Yes 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[employer] - Vaccination Dates Date of 2cond Vaccination (if applicable): 2020 - Past Medical History Pertinent Past Medical History: Yes Neurological History: No Pertinent History ENT History: Cataracts Cardiac History: Hypertension Respiratory History: No Pertinent History Endocrine Medical History: No Pertinent History Musculoskeletal History: No Pertinent History GI Medical History: No Pertinent History History: No Pertinent History Psycho-Social History: No Pertinent History Male Reproductive Disorders: No Pertinent History 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, 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 - Past Surgical History Past Surgical History: Yes Neuro Surgical History: No Pertinent History Cardiac: Cardiac Stent Respiratory: Lobectomy Gastrointestinal: No Pertinent History Genitourinary: No Pertinent History Musculoskeletal: No Pertinent History Male Surgical History: No Pertinent History Other Surgical History: repaired aaa - Social History Smoking Status: Former smoker How long have you smoked: 65 Exposure to second hand smoke: No Drug Use: none Patient Lives Alone: No - Review of Systems Constitutional: No Symptoms Eyes: No Symptoms Ears, Nose, & Throat: No Symptoms Respiratory: No Symptoms Cardiac: No Symptoms Abdominal/Gastrointestinal: Abdominal Pain (Suprapubic pressure) Genitourinary Symptoms: Urinary Retention Skin: No Symptoms Neurological: No Symptoms Psychological: No Symptoms Endocrine: No Symptoms Hematologic/Lymphatic: No Symptoms Immunological/Allergic: No Symptoms All Other Systems: Reviewed and Negative - Nursing Vital Signs Nursing Vital Signs: Initial Vital Signs Temperature 97.0 F 10/17/22 12:46 Pulse Rate 100 H 10/17/22 12:46 Respiratory Rate 24 10/17/22 12:46 Blood Pressure 162/79 10/17/22 12:46 O2 Sat by Pulse Oximetry 97 10/17/22 12:46 Pain Scale Pain Intensity 6 - Physical Exam General Appearance: no apparent distress, alert, anxiety Eye Exam: PERRL/EOMI, eyes nml inspection Ears, Nose, Throat Exam: normal ENT inspection, moist mucous membranes Neck Exam: normal inspection, non-tender, supple, full range of motion Respiratory Exam: airway intact, No chest tenderness, No respiratory distress Gastrointestinal/Abdomen Exam: soft, normal bowel sounds, tenderness (Pelvic pressure) Rectal Exam: not done Back Exam: normal inspection, normal range of motion, No CVA tenderness, No vertebral tenderness Extremity Exam: normal inspection, normal range of motion, pelvis stable Neurologic Exam: alert, oriented x 3, cooperative, audio visual aids director II-XII nml as tested, normal mood/affect, nml cerebellar function, nml station & gait, sensation nml Skin Exam: normal color, warm, dry Lymphatic Exam: No adenopathy SpO2 Interpretation: normal SpO2: 97 O2 Delivery: Room Air - Course Nursing assessment & vital signs reviewed: Yes Ordered Tests: Active Orders 24 hr Category Date Time Status Catheter-[place] Sarah STAT Care 10/17/22 12:46 Active CULTURE,URINE Stat Lab 10/17/22 12:54 Received UA W/RFX UR CULTURE Stat Lab 10/17/22 12:54 Completed Lab/Rad Data: Laboratory Results 10/17/22 Range/Units 12:54 Urine Color Yellow (Yellow) Urine Appearance Cloudy A (Clear) Urine pH 5.5 (4.6-8.0) Ur Specific [place] 1.010 (1.005-1.030) Urine Protein Negative (Negative) Urine Glucose (UA) Negative (Negative) mg/dL Urine Ketones Negative (Negative) Urine Blood Large A (Negative) Urine Nitrite Negative (Negative) Urine Bilirubin Negative (Negative) Urine Urobilinogen 0.2 (0.2) mg/dL Ur Leukocyte Esterase Negative (Negative) U Hyaline Cast (Auto) NONE SEEN (0-2) /LPF Urine Microscopic RBC 51-100 A (0-5) /HPF Urine Microscopic WBC 0-2 (0-5) /HPF Ur Epithelial Cells None Seen (None Seen) /HPF Urine Bacteria None Seen (None Seen) /HPF Urine Culture Reflexed NO (NO) - Progress Progress: improved, re-examined Progress Note: 10/17/22 13:02 This patient's medical issue is 1 of low complexity. Level complexity and the work-up performed is based on review of the patient's past medical history, review of the patient's medication list, review of the patient's drug allergy list, history present illness and physical findings on examination. The work-up in this patient includes placement of a Sarah catheter for him to have in place when he goes home and a urinalysis. We will follow-up with his urinalysis results. If he has a urinary tract infection we will place him on antibiotic therapy. Patient will need to follow-up with his urologist later today or in the morning to make them aware of his urinary retention and to provide him with further direction and instruction Counseled pt/family regarding: lab results, diagnosis, need for follow-up Medical Desision Making - Diagnostic Testing Diagnostic test were ordered, analyzed, and reviewed by me: Yes - Departure Departure Disposition: Home Clinical Impression: Urinary retention Condition: Stable Critical Care Time: No Referrals: ALLI LEOS MD [Primary Care Provider] - Follow up/PCP as directed Additional Instructions: Drink plenty of fluids. Take your medication as prescribed. Follow-up with your urologist on October 29, 2022 for further evaluation and management. Continue your Sarah catheter care as an outpatient.
[2022-10-17 13:22] LABS: Appearance Cloudy (Clear); Bacteria None Seen /HPF (None Seen); Bilirubin Negative (Negative); Blood Large (Negative); Epithelial Cells None Seen /HPF (None Seen); Glucose, Urine Negative (Negative); Hyaline Casts NONE SEEN /LPF (0-2); Ketones Negative (Negative); Leukocyte Esterase Negative (Negative); Nitrite Negative (Negative); Ph 5.5 (4.6-8.0); Protein,Urine Dip Negative (Negative); RBC 51-100 /HPF (0-5); Urobilinogen 0.2 mg/dL (0.2); WBC 0-2 /HPF (0-5)
[2022-10-17 13:26] LABS: ADD URINE CULTURE? NO (NO)
[2022-10-17 13:42] VITALS: BP 130/72; PULSE 77; O2SAT 96
== END 2022-10-17 13:48 | disposition home or self-care (01) ==
LOC: ED 12:41
DX: R33.9 Retention of urine, unspecified (principal); I10 Essential (primary) hypertension; Z79.01 Long term (current) use of anticoagulants; Z79.02 Long term (current) use of antithrombotics/antiplatelets; Z79.899 Other long term (current) drug therapy
CPT/HCPCS: 51702; 81001; 87086; 99283

== ENCOUNTER 2022-11-09 14:47 | Emergency (ER) | payer MEDICARE ==
[2022-11-09 15:11] VITALS: TEMP 98.1
--- NOTE | 2022-11-09 16:21 | XRAY ---
Indication: Left visual field defect following her procedure November 07, 2022 Multiple contiguous axial images obtained through the head without contrast. Comparison: None Age-appropriate global atrophy and mild/moderate periventricular degenerative micro-ischemia bilaterally. Right occipital lobe demonstrates moderate focus of cortical/subcortical hypoattenuation measuring at least 3.5 x 2.7 x 3.8 cm worrisome for acute ischemia. No acute intracranial hemorrhage, abnormal extra-axial fluid collection, or mass effect. Fourth ventricle is midline without hydrocephalus. Bony calvarium intact. Visualized paranasal sinuses and mastoid air cells are clear. Impression: 1. Right occipital cortical/subcortical hypoattenuation as detailed worrisome for acute ischemia. No acute hemorrhage/mass effect. 2. Atrophy and degenerative micro-ischemia within normal limits for patient's age. Comment: Telephone report was given to ordering clinician, Dr. Carmona at 1615 hrs on November 09, 2022.
[2022-11-09 17:35] VITALS: BP 159/68; PULSE 66; RESP 22; O2SAT 98
[2022-11-09 17:45] LABS: ALBUMIN 3.1 g/dL (3.5-5.0); ANION GAP 12.3 MEQ/L (5-15); BILIRUBIN,TOTAL 0.5 mg/dL (0.2-1.3); Calcium 8.2 mg/dL (8.4-10.2); Creatinine 1 1.64 mg/dL (0.66-1.25); EST GLOMERULAR FILTRATION RATE 42.5 ML/MIN; Potassium 3.8 mmol/L (3.5-5.1); Total Protein 6.2 g/dL (6.3-8.2)
--- NOTE | 2022-11-09 17:54 | ERPHSYRPT ---
- History of Present Illness Time Seen by Provider: 11/09/22 15:10 Source: patient Exam Limitations: no limitations Patient Subjective Stated Complaint: Pt states "I had a new heart valve put in on saturday. Ever since I woke up my eyes have been a little blurry." Triage Nursing Assessment: Pt presented alert and oriented X 3, skin pwd. Pt ambulates with an upright steady gait, able to speak in clear full sentences. PT able to speak in clear full sentences. Physician History: Patient is an 87-year-old white male who on Saturday had a TAVR procedure. That seemed to go well and he later that day noted changes in his vision and that he was unable to see his left lateral visual field. The family mention this to the cardiology staff and were told to follow-up with their family doctor the family however was worried about the possibilities of stroke so they brought him to the ER. Timing/Duration: day(s) (3) Severity: moderate Associated Symptoms: No headaches Allergies/Adverse Reactions: No Known Drug Allergies Allergy (Verified 09/27/22 18:20) Home Medications: Amlodipine Besylate 10 mg [Norvasc 10 MG] 10 mg PO HS 05/06/16 [History] Atorvastatin Calcium [Lipitor] 10 mg PO HS 05/06/16 [History] Finasteride 5 mg [Proscar 5 MG] 5 mg PO HS 05/06/16 [History] Terazosin HCl 5 mg [Hytrin 5Mg] 5 mg PO HS 05/06/16 [History] Apixaban [Eliquis] 5 mg PO BID 07/20/22 [History] Metoprolol Succinate [Toprol Xl] 50 mg PO DAILY 07/20/22 [History] Diltiazem HCl [Diltiazem 12Hr ER] 120 mg PO DAILY 09/27/22 [History] Lisinopril 10 mg [Zestril 10 MG] 10 mg PO DAILY 09/27/22 [History] Hx Tetanus, Diphtheria Vaccination/Date Given: No Hx Influenza Vaccination/Date Given: Yes Hx Pneumococcal Vaccination/Date Given: Yes Immunizations Up to Date: Yes Travel Risk - International Travel Have you traveled outside of the country in past 3 weeks: No - Coronavirus Screening Are you exhibiting any of the following symptoms?: No Close contact with a COVID-19 positive Pt in past 14-21 Days: No - Vaccine Status Have you recieved a Covid-19 vaccination: Yes 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[employer] - Vaccination Dates Date of 2cond Vaccination (if applicable): 2020 - Review of Systems Constitutional: No Fever, No Chills Eyes: Vision Changes Ears, Nose, & Throat: No Symptoms Respiratory: No Cough, No Dyspnea Cardiac: No Chest Pain, No Edema, No Syncope Abdominal/Gastrointestinal: No Abdominal Pain, No Nausea, No Vomiting, No Diarrhea Genitourinary Symptoms: No Dysuria Musculoskeletal: No Back Pain, No Neck Pain Skin: No Rash Neurological: No Dizziness, No Focal Weakness, No Sensory Changes Psychological: No Symptoms Endocrine: No Symptoms All Other Systems: Reviewed and Negative - Past Medical History Pertinent Past Medical History: Yes Neurological History: No Pertinent History ENT History: Cataracts Cardiac History: Hypertension Respiratory History: No Pertinent History Endocrine Medical History: No Pertinent History Musculoskeletal History: No Pertinent History GI Medical History: No Pertinent History History: No Pertinent History Psycho-Social History: No Pertinent History Male Reproductive Disorders: No Pertinent History 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, 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 - Past Surgical History Past Surgical History: Yes Neuro Surgical History: No Pertinent History Cardiac: Cardiac Stent Respiratory: Lobectomy Gastrointestinal: No Pertinent History Genitourinary: No Pertinent History Musculoskeletal: No Pertinent History Male Surgical History: No Pertinent History Other Surgical History: repaired aaa - Social History Smoking Status: Former smoker How long have you smoked: 65 Exposure to second hand smoke: No Drug Use: none Patient Lives Alone: No - Nursing Vital Signs Nursing Vital Signs: Initial Vital Signs Temperature 98.1 F 11/09/22 15:01 Pulse Rate 95 H 11/09/22 15:01 Respiratory Rate 20 11/09/22 15:01 Blood Pressure 122/66 11/09/22 15:01 O2 Sat by Pulse Oximetry 99 11/09/22 15:01 Pain Scale Pain Intensity 0 - Physical Exam General Appearance: mild distress, alert Eye Exam: PERRL/EOMI, eyes nml inspection, other (Left field defects to confrontation with fingers) Ears, Nose, Throat Exam: normal ENT inspection, TMs normal, pharynx normal, moist mucous membranes Neck Exam: normal inspection, non-tender, supple, full range of motion Respiratory Exam: normal breath sounds, lungs clear, No respiratory distress Cardiovascular Exam: regular rate/rhythm, normal heart sounds, normal peripheral pulses Gastrointestinal/Abdomen Exam: soft, normal bowel sounds, No tenderness, No mass Back Exam: normal inspection, normal range of motion, No CVA tenderness, No vertebral tenderness Extremity Exam: normal inspection, normal range of motion, pelvis stable Neurologic Exam: alert, oriented x 3, cooperative, normal mood/affect, nml cerebellar function, nml station & gait, sensation nml, No motor deficits Skin Exam: normal color, warm, dry, No rash Lymphatic Exam: No adenopathy SpO2: 98 - Course Nursing assessment & vital signs reviewed: Yes EKG Interpreted by Me: RATE (93), Sinus Rhythm, Other (Left atrial enlargement left probable left ventricular hypertrophy and possibility of an inferior infarct old) - CT Exams Head CT Interpretation: Other (Right occipital area of hypoperfusion consistent with an acute stroke.) Ordered Tests: Active Orders 24 hr Category Date Time Status CT ANGIOGRAPHY NECK [CT] Stat Exams 11/09/22 16:35 Ordered CTA HEAD W AND/OR WO CONTRAST [CT] Stat Exams 11/09/22 16:33 Ordered HEAD WITHOUT CONTRAST [CT] Stat Exams 11/09/22 15:23 Completed CMP Stat Lab 11/09/22 17:22 Completed Lab/Rad Data: Laboratory Result Diagrams 11/09/22 17:22 Laboratory Results 11/09/22 Range/Units 17:22 Sodium 139 (137-145) mmol/L Potassium 3.8 (3.5-5.1) mmol/L Chloride 103 (98-107) mmol/L Carbon Dioxide 28 (22-30) mmol/L Anion Gap 12.3 (5-15) MEQ/L BUN 29 H (9-20) mg/dL Creatinine 1.64 H (0.66-1.25) mg/dL Estimated GFR 42.5 ML/MIN Glucose 166 H (74-106) mg/dL Calcium 8.2 L (8.4-10.2) mg/dL Total Bilirubin 0.50 (0.2-1.3) mg/dL AST 29 (17-59) U/L ALT 15 (0-50) U/L Alkaline Phosphatase 55 (38-126) U/L Serum Total Protein 6.2 L (6.3-8.2) g/dL Albumin 3.1 L (3.5-5.0) g/dL - Progress Progress: unchanged Progress Note: 11/09/22 18:00 Our plan was to do a CTA of the head neck to try to eliminate the possibility of any other dangerous blockages however his GFR was below the level needed for contrast and he will follow-up with his PCP on Saturday Medical Desision Making - Diagnostic Testing Diagnostic test were ordered, analyzed, and reviewed by me: Yes Radiological Interpretation: Reviewed by me - Risk of complications Low Risk: Low risk of morbidity from additional dx testing or treatment - Departure Departure Disposition: Home Clinical Impression: CVA (cerebral vascular accident) Condition: Stable Critical Care Time: No Referrals: ALLI LEOS MD [Primary Care Provider] - Follow up/PCP as directed
== END 2022-11-09 18:43 | disposition home or self-care (01) ==
LOC: ED 14:47
DX: I63.9 Cerebral infarction, unspecified (principal); H53.8 Other visual disturbances; I10 Essential (primary) hypertension; Z79.01 Long term (current) use of anticoagulants; Z79.899 Other long term (current) drug therapy
CPT/HCPCS: 36000; 36415; 70450; 80053; 99283

== ENCOUNTER 2022-11-10 10:40 | Emergency (ER) | payer MEDICARE ==
--- NOTE | 2022-11-10 10:56 | ERPHSYRPT ---
- History of Present Illness Time Seen by Provider: 11/10/22 11:01 Source: patient Physician History: Patient is an 87-year-old male presents to our ED for removal and replacement of leg bag/indwelling catheter. Patient observed to bag leaking today. The catheter is wrapped with a gauze. It is apparently leaking near the valve stem. No other complaints concerns or problems. The urine flow is unobstructed. Patient denies pain. Patient voices no other complaints or concerns at this time. Portions of this note were created with voice recognition technology. There may be grammatical, spelling, punctuation or sound alike errors Timing/Duration: today Severity: moderate Modifying Factors: Improves With: nothing Associated Symptoms: denies symptoms Allergies/Adverse Reactions: No Known Drug Allergies Allergy (Verified 11/10/22 10:54) Home Medications: Amlodipine Besylate 10 mg [Norvasc 10 MG] 10 mg PO HS 05/06/16 [History] Atorvastatin Calcium [Lipitor] 10 mg PO HS 05/06/16 [History] Finasteride 5 mg [Proscar 5 MG] 5 mg PO HS 05/06/16 [History] Terazosin HCl 5 mg [Hytrin 5Mg] 5 mg PO HS 05/06/16 [History] Apixaban [Eliquis] 5 mg PO BID 07/20/22 [History] Metoprolol Succinate [Toprol Xl] 50 mg PO DAILY 07/20/22 [History] Diltiazem HCl [Diltiazem 12Hr ER] 120 mg PO DAILY 09/27/22 [History] Lisinopril 10 mg [Zestril 10 MG] 10 mg PO DAILY 09/27/22 [History] Hx Tetanus, Diphtheria Vaccination/Date Given: No Hx Influenza Vaccination/Date Given: Yes Hx Pneumococcal Vaccination/Date Given: Yes Travel Risk - Vaccine Status Have you recieved a 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-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[employer] - Vaccination Dates Date of 2cond Vaccination (if applicable): 2020 - Review of Systems Constitutional: No Symptoms, No Fever, No Chills Eyes: No Symptoms Ears, Nose, & Throat: No Symptoms Respiratory: No Symptoms, No Cough, No Dyspnea Cardiac: No Symptoms, No Chest Pain, No Edema, No Syncope Abdominal/Gastrointestinal: No Symptoms, No Abdominal Pain, No Nausea, No Vomiting, No Diarrhea Genitourinary Symptoms: No Symptoms, No Dysuria Musculoskeletal: No Symptoms, No Back Pain, No Neck Pain Skin: No Symptoms, No Rash Neurological: No Symptoms, No Dizziness, No Focal Weakness, No Sensory Changes Psychological: No Symptoms Endocrine: No Symptoms Hematologic/Lymphatic: No Symptoms Immunological/Allergic: No Symptoms All Other Systems: Reviewed and Negative - Past Medical History Pertinent Past Medical History: Yes Neurological History: No Pertinent History ENT History: Cataracts Cardiac History: Hypertension Respiratory History: No Pertinent History Endocrine Medical History: No Pertinent History Musculoskeletal History: No Pertinent History GI Medical History: No Pertinent History History: No Pertinent History Psycho-Social History: No Pertinent History Male Reproductive Disorders: No Pertinent History 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, 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 - Past Surgical History Past Surgical History: Yes Neuro Surgical History: No Pertinent History Cardiac: Cardiac Stent Respiratory: Lobectomy Gastrointestinal: No Pertinent History Genitourinary: No Pertinent History Musculoskeletal: No Pertinent History Male Surgical History: No Pertinent History Other Surgical History: repaired aaa - Social History Smoking Status: Former smoker How long have you smoked: 65 Exposure to second hand smoke: No Drug Use: none Patient Lives Alone: No - Nursing Vital Signs Nursing Vital Signs: Initial Vital Signs Temperature 97.7 F 11/10/22 10:41 Pulse Rate 80 11/10/22 10:41 Respiratory Rate 18 11/10/22 10:41 Blood Pressure 130/66 11/10/22 10:41 O2 Sat by Pulse Oximetry 98 11/10/22 10:41 Pain Scale Pain Intensity 0 - Physical Exam General Appearance: no apparent distress, alert Eye Exam: PERRL/EOMI, eyes nml inspection Ears, Nose, Throat Exam: normal ENT inspection, moist mucous membranes Neck Exam: normal inspection, non-tender, supple, full range of motion Respiratory Exam: normal breath sounds, airway intact, No respiratory distress Cardiovascular Exam: regular rate/rhythm Gastrointestinal/Abdomen Exam: soft, normal bowel sounds, No tenderness, No mass Back Exam: normal inspection, normal range of motion, No CVA tenderness, No vertebral tenderness Extremity Exam: normal inspection, normal range of motion, pelvis stable Neurologic Exam: alert, oriented x 3, cooperative, normal mood/affect, nml cerebellar function, nml station & gait, sensation nml, No motor deficits Skin Exam: normal color, warm, dry, No rash Lymphatic Exam: No adenopathy SpO2 Interpretation: normal SpO2: 98 O2 Delivery: Room Air - Course Nursing assessment & vital signs reviewed: Yes - Progress Progress: improved Progress Note: Patient is an 87-year-old male presents to our ED for a leaking leg bag. Leg bag was removed and replaced by our RN, Margaux. An extra leg bag was given to patient as well in the event that the current bag leaks. Patient has no other complaints. Physical exam otherwise unremarkable. Patient discharged home. He voiced no other complaints or concerns. Portions of this note were created with voice recognition technology. There may be grammatical, spelling, punctuation or sound alike errors Complexity of problems addressed is low acute uncomplicated No critical care time Complexity of data reviewed and analyzed is none. No specialized testing ordered. Diagnosis made based on history and physical exam. Risk complication and or risk morbidity/mortality is minimal. We simply changed out patient's leg bag. No complications patient tolerated procedure well. Patient discharged home. Diagnosis is Sarah catheter bag problem. Time spent to discharge patient is approximately 10 minutes. Plan of care established for shared decision making. No social determinants of health impede follow-up. Patient voices no other complaints or concerns at this time. Portions of this note were created with voice recognition technology. There may be grammatical, spelling, punctuation or sound alike errors 11/10/22 11:08 Counseled pt/family regarding: diagnosis, need for follow-up - Departure Departure Disposition: Home Clinical Impression: Sarah catheter problem Condition: Stable Critical Care Time: No Referrals: ALLI LEOS MD [Primary Care Provider] - Follow up/PCP as directed Instructions: How to Care for Your Sarah Catheter Additional Instructions: Discharge/Care Plan MIOSES HERRERA was seen on 11/10/22 in the Emergency Room. The patient was counseled regarding Diagnosis,Lab results, Imaging studies, need for follow up and when to return to the Emergency Room. Prescriptions given: Discharge Note I have spoken with the patient and/or caregivers. I have explained the patient's condition, diagnosis and treatment plan based on the information available to me at this time. I have answered the patient's and/or caregiver's questions and addressed any concerns. The patient and/or caregivers have as good understanding of the patient's diagnosis, condition and treatment plan as can be expected at this point. The vital signs have been stable. The patient's condition is stable and appropriate for discharge from the emergency department. The patient will pursue further outpatient evaluation with the primary care physician or other designated or consulting physician as outlined in the discharge instructions. The patient and/or caregivers are agreeable to this plan of care and follow-up instructions have been explained in detail. The patient and/or caregivers have received these instruction. The patient/and or caregivers are aware that any significant change in condition or worsening of symptoms should prompt an immediate return to this or the closest emergency department or call 911.
[2022-11-10 11:02] VITALS: BP 130/66; PULSE 80; RESP 18; TEMP 97.7; O2SAT 98
== END 2022-11-10 11:05 | disposition home or self-care (01) ==
LOC: ED 10:40
DX: T83.091A Other mechanical complication of indwelling urethral catheter, initial encounter (principal); I10 Essential (primary) hypertension; Z79.01 Long term (current) use of anticoagulants; Z79.899 Other long term (current) drug therapy
CPT/HCPCS: 99281